=== PATIENT | male | born 1955 | race Caucasian/White ===

== ENCOUNTER 2018-07-26 05:59 | Day surgery (SDC) | payer OTHER ==
[2018-07-24 09:21] VITALS: BMI 27.9
[2018-07-26] MEDS ORDERED: ROPIVACAINE HCL 0.5% 30ML VIAL ONE (08:00)
[2018-07-26] MEDS ORDERED: MIDAZOLAM HCL 2 MG/2 ML SINGLE DOSE VIAL ONE (08:04)
[2018-07-26] MEDS ORDERED: ceFAZolin SODIUM 1 GM VIAL ONE (08:45)
[2018-07-26] MEDS ORDERED: DEXAMETHASONE SOD PHOSPHATE 4 MG/1 ML VIAL ONE (08:55)
[2018-07-26] MEDS ORDERED: ONDANSETRON 4 MG/2 ML VIAL ONE (08:55)
[2018-07-26] MEDS ORDERED: PROPOFOL 20 ML ONE ×3 (08:55→10:14)
[2018-07-26] MEDS ORDERED: BENZOIN/ALOE VERA/STORAX/TOLU 58 ML BOTTLE ONE (10:29)
[2018-07-26] MEDS ORDERED: [UNRECOGNIZED DRUG - REMARK] PO PRN (11:08)
[2018-07-26] MEDS ORDERED: FLUTICASONE/SALMETEROL 100 MCG/50 MCG DISKUS IH PRN (11:08)
--- NOTE | 2018-07-26 11:11 | OP ---
Operative Note - Note: Operative Date: 07/26/18 Pre-Operative Diagnosis: Left shoulder: 1. Impingement syndrome. 2. Rotator cuff tear Operation: Left shoulder open: 1. Rubén procedure (distal clavicle excision) . 2. Neer decompression (undercutting acromioplasty & coraco-acromial ligament release). 3. Primary rotator cuff repair (2 x S&N suture anchors) Findings: 1. Full thickness supraspinatus tear (peeled off greater tuberosity insertion) 2. Degenerative biceps tendon Implants: 2 x Tipton & Nephew suture anchors Post-Operative Diagnosis: Same as Pre-op Surgeon: Addy Vallejo Accounts Receivable Representative: Kristian Vallejo Anesthesiologist/MANAGER INTERMEDIATE: Peace Crawley Anesthesia: Local Specimens Removed: 1. Distal clavicle. 2. Undersurface acromion Estimated Blood Loss (mls): 50 Fluid Volume Replaced (mls): 1,000 (Crystalloid) Operative Report Dictated: Yes
--- NOTE | 2018-07-26 11:14 | PN ---
Progress Note (short form) - Note Progress Note: 63M s/p LEFT shoulder open Rubén procedure, Neer Decompression, & rotator cuff repair POD #0. -Pain control: Meloxicam & oxycodone PRN. -Incentive spirometry. -No chemical DVT PPx. -LUE sling. -No LEFT shoulder ROM. -Daily LEFT elbow, wrist & hand ROM. -Keep dressing clean & dry. -f/u in [facility] [place] Office on 08/02/2018; call for appointment; . Addy Vallejo MD (Orthopaedic Surgery).
[2018-07-26 12:10] VITALS: BP 133/85; PULSE 85; TEMP 98.1
--- NOTE | 2018-07-26 13:20 | OP ---
Date of Operation: 07/26/2018 Surgeon: Addy Vallejo MD Graphite Grinder: Kristian Vallejo MD Pre-Operative Diagnosis: Left shoulder: 1. Impingement syndrome. 2. Rotator cuff tear. Post-Operative Diagnosis: Left shoulder: 1. Impingement syndrome. 2. Rotator cuff tear. Surgical Procedure: Left shoulder open: 1. Rubén procedure (distal clavicle excision). 2. Neer decompression (undercutting acromioplasty and coraco-acromial ligament release). 3. Primary rotator cuff repair (2 x Tipton and Nephew suture anchors). Findings: 1. Full-thickness supraspinatus tear (peel off greater tuberosity insertion) . 2. Degenerative biceps tendon. Position: Beach chair. Incision: Longitudinal. Estimated Blood Loss: 50cc. Anesthesia: Sedation, Regional (interscalene block). Intravenous Fluid: See anaesthesia record. Specimens: Excision arthroplasty AC joint. Drains: None. Complications: None. Urine output: None. Bacteriology: None. Transfusions: None. Closure: #1 Vicryl. 3-0 Biosyn. Indications: The patient is a 63 year old male who was indicated for an open left shoulder distal claviculectomy (Rubén procedure), coraco-acromial ligament release & Acromioplasty (Neer Decompression), and primary rotator cuff repair in order to ameliorate the symptoms associated with shoulder impingement syndrome and associated rotator cuff pathology. The patient was identified in the holding area by his armband. A long discussion was held with the patient regarding the risks, benefits and alternatives of the above-named procedure. Risks include but are not limited to : pain, bleeding, infection, damage to surrounding structures (including nerves , blood vessels, skin, ligaments, tendons and bone), reflex sympathetic dystrophy (RSD), wound complications, failure of repair, need for further surgery, blood clots, myocardial infarction, pulmonary embolism, anesthesia complications, compartment syndrome, limb loss, limp, loss of function, cerebrovascular event, and . Benefits as mentioned above. Alternatives include no surgery. All questions were answered. The patient understood and agreed to the procedure. Informed consent was obtained, witnessed and verified. The patients correct operative limb - the left upper extremity - was marked, and the anesthesia team administered an ipsilateral interscalene nerve block. The patient was then taken to the operating room after being seen by the anesthesia and nursing staff. Procedure: The patient was brought into the operating room, placed supine on the OR table and secured with a safety strap. Consent and the operative site was again verified with the patient and nursing and anaesthesia staff. Anaesthesia & antibiotics were then administered without complication. A time-out was done led by , the attending surgeon. The patient was positioned in a beach chair position with all bony prominences well padded. A soft bump was placed under the inferior pole of the ipsilateral scapula. The operative limb was prepped in standard sterile fashion using betadine prep & scrub, wiped off with alcohol, and DuraPrep, and then free draped. A time-out was repeated, and the case began. An incision was made in the lines of Sia from the coracoid process to the lateral body of the acromion. The deltoid was identified. Subcutaneous dissection was carried with electrocautery down to the level of the distal clavicle. With the distal clavicle exposed, sharp Hohmann retractors were placed around the inferior aspects of the anterior and posterior surfaces of the distal clavicle to elevate it. The acromioclavicular (AC) joint was clearly identified and the AC ligament was incised using a 15-blade. The distal 1cm of the clavicle was marked for excision. An oscillating saw was used to perform a distal clavicular osteotomy. A beveled angular cut was made to avoid leaving a sharp inferior corner to impinge on the rotator cuff below. The excision arthroplasty of the distal clavicle was completed and excised from its capsular attachments using a 15-blade. The soft tissues of the joint were saved for later closure. Throughout the case, hemostasis was assured using either monopolar or bipolar electrocautery. Next, deltoid was elevated anteriorly off the underlying coraco-acromial (CA) ligament below using an [employer] retractor. The CA ligament was incised longitudinally using a fresh 15-blade. The CA ligament was then fully released proximally and distally using Metzenbaum scissors. With the CA ligament fully decompressed, the subacromial space became easily accessible. This space was extremely tight. The AC joint capsule was neatly dissected to expose the distal acromion. A blunt Hohmann retractor was placed on the undersurface of the acromion, levering the humeral head down, protecting the underlying structures. Next, the oscillating saw was used to osteotomize the undersurface of the acromion with a beveled cut. A straight 1/2" osteotome was used to complete the cut and to free the excised segment of bone. The osteotomized acromioplasty bone fragment was then removed using a rongeur with a 15-blade to release any soft tissue attachments. The wound was copiously irrigated throughout the case using normal saline solution. Next, with finger palpation, an entire finger was delivered into the sub- acromial space and bursal adhesions were released using manual finger debridement. The shoulder was then taken through a full range of motion were a full thickness tear of the supraspinatus tendon was visualized. The insertion of the tendon had peeled off its attachment to the greater tuberosity of the humerus. The biceps tendon was also visualized and found to be degenerative. It was neatly debrided. Next, 2 titanium Tipton & Nephew suture anchors were inserted into the supraspinatus footprint on the proximal humerus. Each anchor held 2 distinct sutures. The distal edge of the supraspinatus tendon was excised using a fresh 15-blade, revealing a healthy, bleeding tendon edge to facilitate healing. The 4 total sutures from the anchors were delivered through the distal end of the supraspinatus tendon using a free needle and then tied using simple- interrupted knots. This was done with the shoulder in a neutral position. At this point the wound was copiously irrigated. The AC joint capsule was closed primarily using #1 vicryl sutures. Again, copious irrigation was performed, hemostasis was assured and the wound was closed primarily using #1 and 2-0 vicryl sutures. The skin was closed using a 3-0 Biosyn subcuticular suture. A sterile, compressive dressing was applied. The sponge and needle counts were correct at the end of the case and I, the attending surgeon, was present and scrubbed throughout the case. The patient was then transferred to a hospital stretcher and to the recovery room in stable condition, having tolerated the procedure well. A sling was applied at the end of the case. MD USAMA [id number] MTDD
[2018-07-26] MEDS ORDERED: oxyCODONE HCL 5 MG TABLET PO PRN ×2 (14:11)
[2018-07-26] MEDS ORDERED: ONDANSETRON 4 MG/2 ML VIAL IVPUSH PRN (14:11)
[2018-07-26] MEDS ORDERED: LACTATED RINGERS SOLUTION 1,000 ML IV SCH (14:15)
== END 2018-07-26 12:00 | disposition home or self-care (01) ==
LOC: FASU 05:59
PROVIDERS: ATTEND Orthopaedic Surgery Adult Reconstructive Orthopaedic Surgery
PROC: 0LQ20ZZ Repair Left Shoulder Tendon, Open Approach (ICD-10-PCS; 2018-07-26)
PROC: 0PBB0ZZ Excision of Left Clavicle, Open Approach (ICD-10-PCS; principal; 2018-07-26 08:00)
PROC: 0MN20ZZ Release Left Shoulder Bursa and Ligament, Open Approach (ICD-10-PCS; 2018-07-26 08:00)
DX: M75.42 Impingement syndrome of left shoulder (principal); M75.122 Complete rotator cuff tear or rupture of left shoulder, not specified as traumatic

== ENCOUNTER 2020-04-30 07:47 | Inpatient (IN) | payer OTHER ==
--- OUTSIDE RECORDS SUMMARY | 2020-04-30 08:08 | XMS ---
:1955 Author Organization [facility] Support Name Relationship Address Phone KIRK MYLES BROTHER [address] [place] [address] RE Unavailable Unavailable Unavailable Re-disclosure Warning The records that you are about to access may contain information from federally- assisted alcohol or drug abuse programs. If such information is present, then the following federally mandated warning applies: This information has been disclosed to you from records protected by federal confidentiality rules (42 CFR part 2). The federal rules prohibit you from making any further disclosure of this information unless further disclosure is expressly permitted by the written consent of the person to whom it pertains or as otherwise permitted by 42 CFR part 2. A general authorization for the release of medical or other information is NOT sufficient for this purpose. The Federal rules restrict any use of the information to criminally investigate or prosecute any alcohol or drug abuse patient.The records that you are about to access may contain highly sensitive health information, the redisclosure of which is protected by Article 27-F of the [facility] Public Health law. If you continue you may haveaccess to information: Regarding HIV / AIDS; Provided by facilities licensed or operated by the [facility] Office of Mental Health; or Provided by the [facility] Office for People With Developmental Disabilities. If such information is present, then the following [facility] mandated warning applies: This information has been disclosed to you from confidential records which are protected by state law. State law prohibits you from making any further disclosure of this information without the specific written consent of the person to whom it pertains, or as otherwise permitted by law. Any unauthorized further disclosure in violation of state law may result in a fine or longterm sentence or both. A general authorization for the release of medical or other information is NOT sufficient authorization for further disclosure. Insurance Providers Payer name Policy type Policy ID Covered Covered democrat's Policy P marshal / Coverage democrat ID relationship to [facility] ormation type duke [facility] [id number] SP [id number] [employer] [facility] [id number] SP [id number] 462 CARE HMO/POS/EPO Results ID Date Data Source [id number] 12/17/2019 10:54:00 AM EDT [facility] Name Value Range Interpretation Code Description Data Catrachita rce(s) Supporting Document(s ) COV2 [facility] This lab was ordered by JOSE RAMON POND and reported by [facility] Oksana. Procedure
--- NOTE | 2020-04-30 08:09 | PDOC ---
History of Present Illness - General Chief Complaint: Pain Stated Complaint: RIGHT QUADRICEP TENDON PAIN Time Seen by Provider: 04/30/20 08:03 History Source: Patient Exam Limitations: No Limitations - History of Present Illness Initial Comments: 04/30/20 08:10 65y M hx of cad (sp stents), presents to the ED for evaluation of closed quadricepts tendon. Pt was evluated by Dr. Thompson in his office and sent in for repair. The patient tripped approximately 12 days ago, had some right knee pain, had negative x-rays was ultimately referred to Ortho had an MRI revealing a closed right quadriceps tendon tear, was evaluated by orthopedics and sent in for surgery today. Patient endorses some swelling in his entire right leg he denies any associated symptoms including chest pain, shortness of breath, hemoptysis, calf pain. Last oral intake was last night. ROS: Constitutional - no reported Fever, Chills, Respiratory: no reported cough, sob, hemoptysis Cardiac: no reported chest pain, palpitations, light headedness, leg swelling Abd/GI: no reported abd pain, nausea, vomiting, blood per rectum, melena, diarrhea : no reported dysuria, frequency, discharge Musculskelatal - +R leg pain/swelling no reported back pain, joint swelling skin - no reported bruising, erythema, rash neurological: no reported headache, numbness, focal weakness, tingling, ataxia, hematologic: no reported easy bruising, easy bleeding Exam: GENERAL: The patient is awake, alert, and fully oriented, Nontoxic - in no acute distress. HEAD: Normocephalic, atraumatic. EYES: extraocular movements intact, sclera anicteric, conjunctiva clear. ENT: Normal voice, Moist mucous membranes. NECK: Normal range of motion, supple LUNGS: Breath sounds equal, clear to auscultation bilaterally. No wheezes, no rhonchi, no rales. HEART: Regular rate and rhythm, normal S1 and S2 without murmur, rub or gallop. ABDOMEN: Soft, nontender, No guarding, no rebound. No CVA tenderness EXTREMITIES: Normal range of motion, mild edema of the right thigh, right knee (right lower extremity in a knee immobilizer), no calf tenderness, negative Homans sign NEUROLOGICAL: No facial assymetry, Normal speech, PSYCH: Normal mood, normal affect. SKIN: Warm, Dry, normal turgor, 65-year-old gentleman history of CAD with a recent diagnosis of quadriceps tendon tear Anticipate OR this morning COVID test and preop orders obtain Past History - Medical History Allergies/Adverse Reactions: Allergies Allergy/AdvReac Type Severity Reaction Status Date / Time amoxicillin Allergy Severe BLOTCHES Verified 04/30/20 07:51 ON SKIN Home Medications: Ambulatory Orders Aspirin 81 mg PO DAILY 04/30/20 Atorvastatin Ca [Lipitor] 80 mg PO HS 04/30/20 Clopidogrel Bisulfate [Plavix] 75 mg PO DAILY 04/30/20 Finasteride [Proscar -] 5 mg PO DAILY 04/30/20 Naproxen [Naprosyn -] 500 mg PO PRN 04/30/20 Nebivolol HCl [Bystolic] 10 mg PO DAILY 04/30/20 Anemia: No Asthma: No (USES INHALER FOR ALLERGIES REASONS) Cancer: No Cardiac Disorders: Yes ([place] 9,14,19) CVA: No COPD: No CHF: No Dementia: No Diabetes: No GI Disorders: Yes (GERD) Disorders: No HTN: No Hypercholesterolemia: No Liver Disease: No Seizures: No Thyroid Disease: No - Surgical History Abdominal Surgery: Yes (OVER 40 YEARS AGO HERNIA REPAIR) Appendectomy: No Cardiac Surgery: Yes (stents x3) Cholecystectomy: No Lung Surgery: No Neurologic Surgery: No Orthopedic Surgery: Yes - Psycho-Social/Smoking History Smoking History: Never smoked Have you smoked in the past 12 months: No - Substance Abuse Hx (Audit-C & DAST Scrn) How often the patient has a drink containing alcohol: Monthly or less Number of drinks the patient has on a typical day: 1 or 2 How often the patient has six or more drinks on one occasion: Never Score: In Men: 4 or > Positive; In Women: 3 or > Positive: 1 Screen Result (Pos requires Nsg. Audit-10AR): Negative In the last yr the pt used illegal drug/Rx for NonMed reason: No Score: Yes response is considered Positive: 0 Screen Result (Positive result requires Nsg. DAST-10): Negative *Physical Exam - Vital Signs Last Vital Signs Temp Pulse Resp BP Pulse Ox 98.4 F 69 16 122/65 97 04/30/20 07:51 04/30/20 07:51 04/30/20 07:51 04/30/20 07:51 04/30/20 07:51 Heart Score/ECG Review - ECG Impressions Comment:: 04/30/20 09:08 Twelve-lead EKG was performed and reviewed by me. There is normal sinus rhythm with a Rate of 59 The axis is normal. The intervals are normal. There are no ST or T wave abnormalities. ED Treatment Course - LABORATORY CBC & Chemistry Diagram: 04/30/20 08:15 04/30/20 08:15 - RADIOLOGY Radiology Studies Ordered: Category Date Time Status CHEST X-RAY PORTABLE* [RAD] Stat Radiology 04/30/20 08:04 Ordered Medical Decision Making - Medical Decision Making 04/30/20 10:34 Patient blood work was reviewed, case was discussed with inpatient team will admit for further management under Dr. Petty's team Discharge - Discharge Information Problems reviewed: Yes Clinical Impression/Diagnosis: Injury of quadriceps tendon Condition: Stable - Admission Yes - Follow up/Referral Referrals: ON STAFF,NOT [Primary Care Provider] - - Patient Discharge Instructions - Post Discharge Activity
[2020-04-30 08:34] LABS: BASO % 0.7 % (0-2.0); EOS % 0.7 % (0-4.5); HEMOGLOBIN 12.5 GM/dL (11.7-16.9); LYMPH % 19.3 % (8-40); MCH 30.8 pg (25.7-33.7); MCHC 33.9 g/dl (32.0-35.9); MEAN CELL VOLUME 90.7 fl (80-96); MEAN PLT VOLUME 8.1 fl (7.5-11.1); NEUT % 72.3 % (42.8-82.8); PLATELET COUNT 326 K/MM3 (134-434); RBC 4.08 M/mm3 (4.00-5.60); RDW 14.6 % (11.9-15.9); WHITE BLOOD COUNT 8.7 K/mm3 (4.0-10.0)
--- NOTE | 2020-04-30 08:43 | PN ---
Progress Note (short form) - Note Progress Note: 65M presents with subacute, traumatic right quadriceps tendon tear. -f/u rapid COVID-19 test. -NPO, IVF. -Hold DVT PPx. including Aspirin and Plavix (last dose yesterday). -On add-on OR schedule for today: open repair/reconstruction right quadriceps tendon. [facility] -RLE [place] brace locked in extension. -WBAT RLE. -Will follow. Addy Vallejo MD (Orthopaedic Surgery).
[2020-04-30 08:45] LABS: INR 0.98 (0.83-1.09); PROTHROMBIN TIME (PATIENT) 11.6 SEC (9.7-13.0)
[2020-04-30 08:56] LABS: ALBUMIN 3.7 g/dl (3.4-5.0); BILIRUBIN,TOTAL 1.7 mg/dL (0.2-1); BLOOD UREA NITROGEN 22.1 mg/dL (7-18); CALCIUM 9.3 mg/dL (8.5-10.1); CREATININE 0.8 mg/dL (0.55-1.3); POTASSIUM 4.1 mmol/L (3.5-5.1); TOT PROT 6.6 g/dl (6.4-8.2)
[2020-04-30] MEDS ORDERED: SODIUM CHLORIDE 1,000 ML IV ONE (10:26)
--- NOTE | 2020-04-30 10:29 | EKG ---
Test Reason : Blood Pressure : / mmHG Vent. Rate : 059 BPM Atrial Rate : 059 BPM P-R Int : 132 ms QRS Dur : 104 ms QT Int : 444 ms P-R-T Axes : 028 016 062 degrees QTc Int : 439 ms SINUS BRADYCARDIA WITH PREMATURE ATRIAL COMPLEXES LOW VOLTAGE QRS INCOMPLETE RIGHT BUNDLE BRANCH BLOCK CANNOT RULE OUT ANTEROSEPTAL INFARCT , AGE UNDETERMINED ABNORMAL ECG NO PREVIOUS ECGS AVAILABLE Confirmed by MEME KEY MD ([id number]) on 04/30/2020 10:29:02 AM Referred By: Confirmed By:MEME KEY MD
[2020-04-30] MEDS ORDERED: SODIUM CHLORIDE 1,000 ML IV SCH (10:45)
--- NOTE | 2020-04-30 11:30 | HP ---
CHIEF COMPLAINT: R leg pain PCP: HISTORY OF PRESENT ILLNESS: Patient is a 65 y/o male with a history of CAD sp 3 stents in March 2019 who presents for tear of R quad tendon. Patient reports last week he tripped going up stairs. At [facility] he had an xray done that did not show a tear, but then with Dr. Shepherd he had an MRI done that showed a tear. Patient reports the pain is minimal but there is a lot of bruising. He has had multiple other orthopedic joints operated on. Denies fever, chills, nausea, vomiting, headache, or shortness of breath. ER course was notable for: (1) (2) (3) Recent Travel: denies PAST MEDICAL HISTORY: CAD s/p 3 stents PAST SURGICAL HISTORY: Promise Garcia Social History: Smoking: denies Alcohol: occasional Drugs: denies Allergies amoxicillin Allergy (Severe, Verified 04/30/20 07:51) BLOTCHES ON SKIN HOME MEDICATIONS: Home Medications Medication Instructions Recorded Aspirin 81 mg PO DAILY 04/30/20 Atorvastatin Ca [Lipitor] 80 mg PO HS 04/30/20 Clopidogrel Bisulfate [Plavix] 75 mg PO DAILY 04/30/20 Finasteride [Proscar -] 5 mg PO DAILY 04/30/20 Naproxen [Naprosyn -] 500 mg PO PRN 04/30/20 Nebivolol HCl [Bystolic] 10 mg PO DAILY 04/30/20 REVIEW OF SYSTEMS CONSTITUTIONAL: Absent: fever, chills, diaphoresis, generalized weakness, malaise, loss of appetite, weight change HEENT: Absent: rhinorrhea, nasal congestion, throat pain, throat swelling, difficulty swallowing, mouth swelling, ear pain, eye pain, visual changes CARDIOVASCULAR: Absent: chest pain, syncope, palpitations, irregular heart rate, lightheadedness, peripheral edema RESPIRATORY: Absent: cough, shortness of breath, dyspnea with exertion, orthopnea, wheezing, stridor, hemoptysis GASTROINTESTINAL: Absent: abdominal pain, abdominal distension, nausea, vomiting, diarrhea, constipation, melena, hematochezia GENITOURINARY: Absent: dysuria, frequency, urgency, hesitancy, hematuria, flank pain, genital pain MUSCULOSKELETAL: myalgia Absent:, arthralgia, joint swelling, back pain, neck pain SKIN: Absent: rash, itching, pallor HEMATOLOGIC/IMMUNOLOGIC: Absent: easy bleeding, easy bruising, lymphadenopathy, frequent infections ENDOCRINE: Absent: unexplained weight gain, unexplained weight loss, heat intolerance, cold intolerance NEUROLOGIC: Absent: headache, focal weakness or paresthesias, dizziness, unsteady gait, seizure, mental status changes, bladder or bowel incontinence PSYCHIATRIC: Absent: anxiety, depression, suicidal or homicidal ideation, hallucinations. PHYSICAL EXAMINATION Vital Signs Temperature 98.2 F 04/30/20 10:23 Pulse Rate 65 04/30/20 10:23 Respiratory Rate 18 04/30/20 10:23 Blood Pressure 121/76 04/30/20 10:23 O2 Sat by Pulse Oximetry (%) 97 04/30/20 10:23 GENERAL: Awake, alert, and fully oriented, in no acute distress. HEAD: Normal with no signs of trauma. EYES: Pupils equal, round and reactive to light, extraocular movements intact, sclera anicteric, EARS, NOSE, THROAT: Moist mucous membranes. LUNGS: Breath sounds equal, clear to auscultation bilaterally. No wheezes, and no crackles. No accessory muscle use. HEART: Regular rate and rhythm, normal S1 and S2 without murmur, rub or gallop. ABDOMEN: Soft, nontender, not distended, normoactive bowel sounds, no guarding, no rebound, no masses. No hepatomegaly or splenomegaly. MUSCULOSKELETAL: Rl eg in a brace over pants, per patient skin is bruised LOWER EXTREMITIES: 2+ pulses, warm, well-perfused. No calf tenderness. No peripheral edema. SKIN: Warm, dry, normal turgor, no rashes or lesions noted, normal capillary refill. CBC, BMP 04/30/20 08:15 04/30/20 08:15 ASSESSMENT/PLAN: Patient is a 65 y/o male with a history of CAD sp 3 stents in March 2019 who presents for tear of R quad tendon. #R quadriceps tear - for surgery today with Dr. Shepherd - patient is a moderate risk for a moderate procedure - EKG sowed sinus bradycardia at 59 - f/u anesthesia for pain control post op #hx CAD with 3 stents - hold ASA and clopidogrel pre op - continue home bp meds tomorrow if patient's vitals can tolerate DVT ppx: SCD left leg FEN: NPO, NS Dispo: monitor on med surg after surgery Family Medical History Family History: As Documented Visit type - Emergency Visit Emergency Visit: Yes ED Registration Date: 04/30/20 Care time: The patient presented to the Emergency Department on the above date and was hospitalized for further evaluation of their emergent condition. - New Patient This patient is new to me today: Yes Date on this admission: 04/30/20 - Critical Care Critical Care patient: No ATTENDING PHYSICIAN STATEMENT I saw and evaluated the patient. I reviewed the resident's note and discussed the case with the resident. I agree with the resident's findings and plan as documented. SUBJECTIVE: OBJECTIVE: ASSESSMENT AND PLAN:
--- NOTE | 2020-04-30 12:43 | PN ---
Teaching Attending Note Name of Resident: Franca Olsen ATTENDING PHYSICIAN STATEMENT I saw and evaluated the patient. I reviewed the resident's note and discussed the case with the resident. I agree with the resident's findings and plan as documented. SUBJECTIVE: 65yo M with h/o CAD x3 stents with most recent 03/[address] [facility] for ruptured R quadriceps tendon. He had a mechanical fall about 10 days prior and sought attention due to some residual R leg weakness and pain. He had undergone XR to r/o fracture and followed up outpatient with [facility]. He underwent MRI for his RLE which revealed a quadriceps tendon tear and he was sent here for urgent/emergent surgical repair. Patient has his imaging performed at [facility] affiliated location. Patient reports that he has full sensation and was able to walk with a cane albeit under same pain. He denies any prodromal symptoms to the fall and notes just tripping on an item on the floor. Patient has undergone surgical repair of L rotator cuff tendon with impingement reduction without any difficulties. He is taking Aspirin and Plavix due to his stent about 1 year prior and is due for follow-up for potential discontinuation of his Plavix. His weighter is aware of current events. OBJECTIVE: Vital Signs Temperature 98.2 F 04/30/20 10:23 Pulse Rate 65 04/30/20 10:23 Respiratory Rate 18 04/30/20 10:23 Blood Pressure 121/76 04/30/20 10:23 O2 Sat by Pulse Oximetry (%) 97 04/30/20 10:23 PE: gen: NAD, awake, alert, oriented HEENT: NC/AT, EOMI, [place], MMM Neck: No JVD CARD: RRR no murmurs LUNG: CTA b/l without splinting, wheezes or rales ABD: Soft, Nt/ND, + BS EXT: RLE in traction brace, movement intact at the ankle, sensation intact at the ankle, b/l pulses strong CBC, BMP 04/30/20 08:15 04/30/20 08:15 Active Medications Sodium Chloride (Normal Saline -) 1,000 mls @ 100 mls/hr IV ASDIR SONALI Stop: 04/30/20 20:44 Last Admin: 04/30/20 10:49 Dose: 100 mls/hr Documented by: ECG - Sinus bradycardia @59bpm, with PACs, incomplete RBB, no prior ECGs for comparison ASSESSMENT AND PLAN: Acute R Quadriceps Tendon Rupture History of CAD s/p PCI stenting --Given emergent/urgent nature of surgical intervention patient will need to undergo repair --Can hold ASA and Plavix in lieu of procedure; surgical team aware of recent discontinuation --Restart per surgical team --Awaiting COVID PCR for surgery --CBC/CMP WNL --CXR reviewed without any acute pathology --Patient to have pain control if needed --Upon d/c patient should avoid fluoroquinolone therapy in future if possible due increased risk of tendon ruptures --NPO for now; unknown is patient will undergo general anesthesia limb block Dispo: awaiting surgery (added-on to schedule) Rest as per resident note DO Rekha Schreiber
[2020-04-30 15:14] VITALS: BMI 28.5
[2020-04-30] MEDS ORDERED: EPHEDRINE SULFATE/0.9% NACL/PF 50 MG/10 ML SYRINGE NR ONE (15:15)
[2020-04-30] MEDS ORDERED: SUCCINYLCHOLINE CHLORIDE 200 MG/10 ML SYRINGE ONE (15:15)
[2020-04-30] MEDS ORDERED: PROPOFOL 20 ML ONE ×2 (15:15)
[2020-04-30] MEDS ORDERED: ROCURONIUM BROMIDE 50 MG/5 ML SYRINGE ONE ×2 (15:16→15:55)
[2020-04-30] MEDS ORDERED: MIDAZOLAM HCL 2 MG/2 ML SINGLE DOSE VIAL ONE (15:19)
[2020-04-30] MEDS ORDERED: MINERAL OIL/PETROLATUM,WHITE 3.5 GM TUBE ONE (15:19)
[2020-04-30] MEDS ORDERED: ceFAZolin SODIUM 1 GM VIAL IVPB ONE ×3 (15:46→15:50)
[2020-04-30] MEDS ORDERED: HYDROmorphone HCl 2 MG/ML VIAL ONE ×2 (16:33→17:19)
[2020-04-30] MEDS ORDERED: NEOSTIGMINE METHYLSULFATE 0.5 MG/1 ML - 10 ML MDV ONE (16:34)
[2020-04-30] MEDS ORDERED: MAGNESIUM HYDROX 2400MG/30ML ORAL SUSPENSION 30 ML CUP PO PRN (17:10)
[2020-04-30] MEDS ORDERED: ONDANSETRON 4 MG/2 ML VIAL IVPUSH PRN ×2 (17:10→18:11)
[2020-04-30] MEDS ORDERED: MAG HYDROX/AL HYDROX/SIMETH 30 ML UNIT-DOSE CUP PO PRN (17:10)
[2020-04-30] MEDS ORDERED: LACTATED RINGERS SOLUTION 1,000 ML IV SCH ×2 (17:15→18:15)
--- NOTE | 2020-04-30 17:27 | PN ---
Progress Note (short form) - Note Progress Note: 65M presents with subacute, traumatic right quadriceps tendon tear. Pain well controlled. No acute events. Pt. admitted through ED to expedite COVID-19 rapid testing to facilitate expedited surgical care. Pt. NPO, on IVF. Labs & vitals reviewed. PE: AAO x 3, NAD. R Knee: Knee immobilizer intact & in place. (+) Sulcus sign over distal quadriceps tendon. Unable to SLR. NVI distally. Imaging: No new imaging obtained. Outpatient MRI R knee demonstrates full thickness quadriceps tear. A/P: 65M presents with subacute, traumatic right quadriceps tendon tear. -Long conversation held with patient regarding natural history and progression of quadriceps tendon tears. -Risks, benefits, and alternatives of non-surgical VS surgical intervention discussed with and understood by patient. He wishes to pursue a surgical solution to his right quadriceps tendon tear. -NPO, IVF. -Consent in chart for open repair right quadriceps tendon tear. -Pain control. 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 -Care per primary [facility] medical hospitalist team. -Will follow. Addy Vallejo MD (Orthopaedic Surgery).
--- NOTE | 2020-04-30 17:32 | PN ---
Progress Note (short form) - Note Progress Note: 65M s/p open repair quadriceps tendon POD #0. -Pain control: per anaesthesia team. -DVT PPx: -Chemical: ASA 81mg PO BID x 6 weeks. -Mechanical: MARVIN's, SCD's. -f/u 2 x drain outputs. -Incentive spirometry q15 min. -PT/OT/Rehab, OOB. -WBAT RLE. -Knee immobilizer on at all times; strictly NO range of motion right knee. -Post-op Ancef x 3 doses. -f/u post-op TOV: 8 hours max. -f/u AM labs. -Diet as tolerated. -Care per medical hospitalist team. -Discharge planning: f/u [facility] [place] [facility] 7-10 days after discharge; call for appointment . -Will follow. Addy Vallejo MD (Orthopaedic Surgery).
[2020-04-30] MEDS ORDERED: HYDROmorphone *PCA* 10MG/50ML DISP.SYRIN ONE (17:48)
--- NOTE | 2020-04-30 17:53 | OP ---
Operative Note - Note: Operative Date: 04/30/20 Pre-Operative Diagnosis: Traumatic right quadriceps tendon tear Operation: Open right quadriceps tendon repair Post-Operative Diagnosis: Same as Pre-op Surgeon: Addy Vallejo Sap Technical Developer: Kristian Vallejo Anesthesiologist/INFORMATICS NURSE SPECIALIST: Eze Starkey Anesthesia: General Estimated Blood Loss (mls): 20 Drains & Tubes with Location: 1 x deep & 1 x superficial drain Fluid Volume Replaced (mls): 500 (Crystalloid) Operative Report Dictated: Yes
[2020-04-30] MEDS: HYDROmorphone *PCA* 10MG/50ML DISP.SYRIN PCA SCH (18:00)
[2020-04-30] MEDS ORDERED: HYDROmorphone HCl 2 MG/ML VIAL IVPB ONE (18:11)
[2020-04-30] MEDS ORDERED: FLU VACCINE (FLULAVAL) PF 60 MCG/0.5 ML SYRINGE 2020-2021 IM ONE (20:00)
[2020-04-30] MEDS ORDERED: SENNOSIDES/DOCUSATE COMBO (SENNA PLUS) TABLET (UD) PO SCH (22:00)
[2020-04-30] MEDS ORDERED: ASPIRIN 81 MG CHEWABLE TABLETS PO SCH (22:00)
[2020-04-30] MEDS ORDERED: ATORVASTATIN CA 80 MG TABLET (FP) PO SCH (22:00)
[2020-04-30] MEDS: CEFAZOLIN 2 GM/D5W 2 GM/50 ML ML IVPB SCH (23:19)
[2020-05-01] MEDS: CEFAZOLIN 2 GM/D5W 2 GM/50 ML ML IVPB SCH (05:23)
[2020-05-01] MEDS ORDERED: MAGNESIUM HYDROX 2400MG/30ML ORAL SUSPENSION 30 ML CUP PO PRN (07:38)
[2020-05-01] MEDS ORDERED: ONDANSETRON 4 MG/2 ML VIAL IVPUSH PRN (07:38)
[2020-05-01 08:07] LABS: BASO % 0.3 % (0-2.0); HEMATOCRIT 32.9 % (35.4-49); HEMOGLOBIN 10.8 GM/dL (11.7-16.9); LYMPH % 5.2 % (8-40); MCH 29.7 pg (25.7-33.7); MCHC 32.8 g/dl (32.0-35.9); MEAN CELL VOLUME 90.6 fl (80-96); MEAN PLT VOLUME 8.6 fl (7.5-11.1); MONO % 7.4 % (3.8-10.2); NEUT % 87.1 % (42.8-82.8); PLATELET COUNT 303 K/MM3 (134-434); RBC 3.63 M/mm3 (4.00-5.60); RDW 14.8 % (11.9-15.9); WHITE BLOOD COUNT 13.3 K/mm3 (4.0-10.0)
[2020-05-01 08:34] LABS: ALBUMIN 3.1 g/dl (3.4-5.0); BLOOD UREA NITROGEN 17.2 mg/dL (7-18); CALCIUM 8.8 mg/dL (8.5-10.1); CREATININE 0.9 mg/dL (0.55-1.3); MAGNESIUM 1.8 mg/dL (1.8-2.4); PHOSPHOROUS 3.7 mg/dL (2.5-4.9); POTASSIUM 4.4 mmol/L (3.5-5.1); TOT PROT 5.7 g/dl (6.4-8.2)
[2020-05-01] MEDS ORDERED: NEBIVOLOL 10 MG TABLET (FP) PO SCH (10:00)
[2020-05-01] MEDS ORDERED: PANTOPRAZOLE 40 MG TABLET PO SCH (10:00)
[2020-05-01] MEDS ORDERED: FINASTERIDE 5 MG TABLET (FP) PO SCH (10:00)
[2020-05-01] MEDS: NEBIVOLOL 10 MG TABLET (FP) PO SCH (10:46)
[2020-05-01] MEDS: PANTOPRAZOLE 40 MG TABLET PO SCH (10:46)
[2020-05-01] MEDS: ASPIRIN COATED 81 MG TABLET.EC PO SCH ×2 (10:46→21:53)
[2020-05-01] MEDS: FINASTERIDE 5 MG TABLET (FP) PO SCH (10:46)
[2020-05-01] MEDS: SENNOSIDES/DOCUSATE COMBO (SENNA PLUS) TABLET (UD) PO SCH ×2 (10:47→21:55)
[2020-05-01] MEDS ORDERED: CEFAZOLIN 2 GM/D5W 2 GM/50 ML ML IVPB SCH (11:00)
--- NOTE | 2020-05-01 14:29 | PN ---
Teaching Attending Note Name of Resident: Rafiq Gar ATTENDING PHYSICIAN STATEMENT I saw and evaluated the patient. I reviewed the resident's note and discussed the case with the resident. I agree with the resident's findings and plan as documented. SUBJECTIVE: No fever or chills. has pain in area surrounding knee. no ZAPIEN , no N.V. OBJECTIVE: NAD, awake, alert, cooperative CV: RRR, no mRG Lungs: CTAB LE: RLE in a immobilizer with 2 drains with serosanguinous fluids. R toes with n l sensation , can wiggle and DP 2+ . 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 will confirm with dr. Vallejo - cont ASA - cont bystolic - cont statin - dc IVF - APRIL management per ortho dispo; HLOC
--- NOTE | 2020-05-01 17:30 | PN ---
Physical Exam: SUBJECTIVE: Patient seen and examined at bedside, reports discomfort with his knee immobilizer. able to make urine. No bowel movements/gas. Pain controlled, able to tolerate Diet. OBJECTIVE: Vital Signs Period Temp Pulse Resp BP Sys/Ch Pulse Ox Last 24 Hr 97.9 F-98.5 F 58-88 12-18 124-142/59-90 97-100 GENERAL: Awake, alert, and fully oriented, in no acute distress. HEAD: Normal with no signs of trauma. EYES: Pupils equal, round and reactive to light, extraocular movements intact, sclera anicteric, EARS, NOSE, THROAT: Moist mucous membranes. LUNGS: Breath sounds equal, clear to auscultation bilaterally. No wheezes, and no crackles. No accessory muscle use. HEART: Regular rate and rhythm, normal S1 and S2 without murmur, rub or gallop. ABDOMEN: Soft, nontender, not distended, normoactive bowel sounds, no guarding, no rebound, no masses. No hepatomegaly or splenomegaly. LOWER EXTREMITIES: 2+ pulses, warm, well-perfused. No calf tenderness. No peripheral edema. Right leg: Knee immobilizer in place, intact dressing, 2 APRIL drains with serosanguinous fluids: motor and sensory function intact in RLE. SKIN: Warm, dry, normal turgor, no rashes or lesions noted, normal capillary refill. Laboratory Results - last 24 hr 05/01/20 05/01/20 06:50 06:50 WBC 13.3 H RBC 3.63 L Hgb 10.8 L Hct 32.9 L MCV 90.6 MCH 29.7 MCHC 32.8 RDW 14.8 Plt Count 303 MPV 8.6 Absolute Neuts (auto) 11.6 H Neutrophils % 87.1 H D Lymphocytes % 5.2 L D Monocytes % 7.4 Eosinophils % 0.0 D Basophils % 0.3 Nucleated RBC % 0 Sodium 137 Potassium 4.4 Chloride 103 Carbon Dioxide 28 Anion Gap 6 L BUN 17.2 Creatinine 0.9 Est GFR (CKD-EPI)AfAm 104.98 Est GFR (CKD-EPI)NonAf 90.58 Random Glucose 134 H Calcium 8.8 Phosphorus 3.7 Magnesium 1.8 Total Bilirubin 1.0 AST 19 ALT 19 Alkaline Phosphatase 57 Total Protein 5.7 L Albumin 3.1 L Active Medications Generic Name Dose Route Start Last Admin Trade Name Freq PRN Reason Stop Dose Admin Al Hydroxide/Mg Hydroxide 30 ml 05/01/20 07:38 Mylanta Oral Suspension - PO Q4H PRN DYSPEPSIA Aspirin 81 mg 05/01/20 10:00 05/01/20 10:46 Ecotrin - PO 81 mg BID SONALI Administration Atorvastatin Calcium 80 mg 05/01/20 22:00 Lipitor - PO HS SONALI Finasteride 5 mg 05/01/20 10:00 05/01/20 10:46 Proscar - PO 5 mg DAILY SONALI Administration Hydromorphone HCl 10 mg 04/30/20 18:15 04/30/20 18:00 Hydromorphone 10 Mg/50 Ml-Ns FLIGHT COMMUNICATIONS OPERATOR 05/07/20 18:12 10 mg FLIGHT COMMUNICATIONS OPERATOR SONALI Administration Protocol Magnesium Hydroxide 30 ml 05/01/20 07:38 Milk Of Magnesia - PO PRN PRN CONSTIPATION Nebivolol 10 mg 05/01/20 10:00 05/01/20 10:46 Bystolic - PO 10 mg DAILY SONALI Administration Ondansetron HCl 4 mg 04/30/20 18:11 Zofran Injection IVPUSH Q6H PRN NAUSEA AND/OR VOMITING Ondansetron HCl 4 mg 05/01/20 07:38 Zofran Injection IVPUSH Q6H PRN NAUSEA Pantoprazole Sodium 40 mg 05/01/20 10:00 05/01/20 10:46 Protonix - PO 40 mg DAILY SONALI Administration Senna/Docusate Sodium 2 tablet 05/01/20 10:00 05/01/20 10:47 Pericolace - PO 2 tablet BID SONALI Administration ASSESSMENT/PLAN: 65 Y M with a PMH of CAD s/p 3 stents( most recent 03/2019) presented with a tear of R quad tendon, admitted for a repair with Dr. [facility]lejo. #R quadriceps tear - s/p Open right quadriceps tendon repair with Dr. 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 - New Patient This patient is new to me today: No - Critical Care Critical Care patient: No - Discharge Referral Referred to [facility] Med P.C.: No ATTENDING PHYSICIAN STATEMENT I saw and evaluated the patient. I reviewed the resident's note and discussed the case with the resident. I agree with the resident's findings and plan as documented. SUBJECTIVE: OBJECTIVE: ASSESSMENT AND PLAN:
[2020-05-01] MEDS: MAG HYDROX/AL HYDROX/SIMETH 30 ML UNIT-DOSE CUP PO PRN ×2 (18:39→23:38)
[2020-05-01] MEDS: ATORVASTATIN CA 80 MG TABLET (FP) PO SCH (21:53)
[2020-05-01] MEDS ORDERED: PCA PUMP NR ONE (22:07)
[2020-05-01] MEDS: HYDROmorphone *PCA* 10MG/50ML DISP.SYRIN PCA SCH (22:10)
[2020-05-02 08:21] LABS: BASO % 0.5 % (0-2.0); HEMATOCRIT 29.9 % (35.4-49); HEMOGLOBIN 10.2 GM/dL (11.7-16.9); LYMPH % 10.4 % (8-40); MCH 30.6 pg (25.7-33.7); MEAN CELL VOLUME 89.9 fl (80-96); MEAN PLT VOLUME 8.5 fl (7.5-11.1); MONO % 11.7 % (3.8-10.2); NEUT % 75.4 % (42.8-82.8); PLATELET COUNT 274 K/MM3 (134-434); RBC 3.33 M/mm3 (4.00-5.60); RDW 14.8 % (11.9-15.9); WHITE BLOOD COUNT 11.4 K/mm3 (4.0-10.0)
--- NOTE | 2020-05-02 08:31 | OP ---
Date of Operation: 04/30/2020 Pre-Operative Diagnosis: Traumatic right quadriceps rupture. Post-Operative Diagnosis: Traumatic right quadriceps rupture. Procedure Performed: 1. Open repair right quadriceps tendon rupture. (58021) 2. Application right long leg splint. (86918) Surgeon: Addy Vallejo M.D. Train Brake Operator: Kristian Vallejo M.D. Anesthesia: General. Position: Supine Incision: Midline Estimated Blood Loss: 20 mL; 1.5L evacuated hematoma. Intravenous Fluid: 500cc crystalloid. Specimens:1 x deep wound culture swab. Drains: 1 x deep & 1 x superficial 19F HemoVac. Complications: None. Urine Output: None. Transfusions: None. Closure: No. 1 and skin nba. Tourniquet Pressure: 350 mmHg. Tourniquet Time: 50 minutes. INDICATIONS: The patient was indicated for a right open quadriceps mechanism repair in order to facilitate improved motion and mobilization, and to prevent the complications associated with a sedentary lifestyle. The patient was identified in the holding area by his armband. A long discussion was held with the patient regarding the risks, benefits and alternatives of the above-named procedure. Risks include but are not limited to: pain, bleeding, infection, damage to surrounding structures (including nerves, blood vessels, skin, ligaments, tendons and bone), wound complications, failure of hardware/implants/reduction, need for further surgery, blood clots, myocardial infarction, pulmonary embolism, cerebrovascular insult, anesthesia complications, compartment syndrome, limb loss, limp, loss of function, and . Benefits as mentioned above. Alternatives include no surgery. All questions were answered. The patient understood and agreed to the procedure. Informed consent was obtained, witnessed and verified by hospital nursing staff. The patients correct operative limb - that is the right lower extremity - was marked. The patient was then seen by the anesthesia and nursing staff and then taken to the operating room. PROCEDURE: The patient was brought into the operating room, transferred to the OR table, and secured with a safety strap. Consent and the operative site were again verified with the patient, the nursing team, the surgical team, and the anesthesiology team. Anesthesia, and IV antibiotics were then administered without complication. A time out was done, led by me the attending surgeon. A preoperative orthopedic examination revealed a positive Sulcus Sign involving the operative knee. The patient was positioned with all bony prominences well padded, and a tourniquet was placed proximally on the thigh of the operative limb and set to 350mmHg. The operative limb was prepped in standard sterile fashion using betadine prep & scrub, wiped off with alcohol, DuraPrep applied, and then free draped. A time-out was again done. The limb was then exsanguinated using elevation and an Esmarch. The tourniquet was inflated, and the case began. A standard midline longitudinal incision was made over the operative knee from the distal thigh to the inferior pole of the knutson manasa. Sharp dissection was carried down to the level of the quadriceps mechanism where the full extent of the injury was visualized. The quadriceps tendon was lacerated and macerated. Medially, a transverse, full thickness, intrasubstance laceration of the quadriceps tendon was identified slightly distal to the musculotendinous junction. The extended to the lateral retinacular tissue, however a longitudinal band of retinacular tissue anchored the two ends of the torn extensor mechanism. Far medially and laterally, the retinacular tissue was intact. 1.5L retained hematoma was evacuated with manual debridement and normal saline pulse lavage irrigation. With the knee fully extended, a primary repair of the quadriceps tendon rupture was performed using #1 Vicryl sutures in simple interrupted fashion. The deep wound was closed over a deep 19F drain. A second 19F HemoVac drain was placed to drain the superficial, subcutaneous space. The wounds were closed primarily using No. 1 Vicryl sutures, and the skin was eventually closed using skin nba to facilitate potential drainage. Next, the skin surface was cleaned using saline-soaked lap pads and then dried using dry lap pads. Xeroform and dry gauze were applied to the wound. Webril as well as Salvador wraps were rolled from the foot all the way up to the thigh to provide gentle compression. Another 1g of Ancef was administered intravenously. The tourniquet was then released at a final time of 50 minutes. A Mady brace locked in extension was applied to the operative limb to splint the limb from thigh to ankle. The sponge and needle counts were correct at the end of the case, and I, the attending surgeon, was present and scrubbed throughout the case. The patient was then transferred to the hospital bed and then to the recovery room in stable condition having tolerated this procedure well. MD USAMA Sam/[id number] MTDD
[2020-05-02 08:40] LABS: BILIRUBIN,TOTAL 1.3 mg/dL (0.2-1); BLOOD UREA NITROGEN 13.5 mg/dL (7-18); CALCIUM 8.2 mg/dL (8.5-10.1); CREATININE 0.8 mg/dL (0.55-1.3); MAGNESIUM 2.1 mg/dL (1.8-2.4); PHOSPHOROUS 2.3 mg/dL (2.5-4.9); POTASSIUM 4.3 mmol/L (3.5-5.1); TOT PROT 5.6 g/dl (6.4-8.2)
[2020-05-02] MEDS: SENNOSIDES/DOCUSATE COMBO (SENNA PLUS) TABLET (UD) PO SCH ×2 (09:22→21:22)
[2020-05-02] MEDS: PANTOPRAZOLE 40 MG TABLET PO SCH (09:22)
[2020-05-02] MEDS: ASPIRIN COATED 81 MG TABLET.EC PO SCH ×2 (09:22→21:23)
[2020-05-02] MEDS: FINASTERIDE 5 MG TABLET (FP) PO SCH (09:22)
[2020-05-02] MEDS: NEBIVOLOL 10 MG TABLET (FP) PO SCH (09:22)
--- NOTE | 2020-05-02 13:47 | PN ---
Progress Note (short form) - Note Progress Note: POD #2 Post Quads Tendon Repair Apyrexial Comfortable in brece Fully orientated TPP Vitals all stable CVS Stable RESP Clear ABD Soft passing flatus Eating normal diet MSKELETAL Brace in situ Heels ok No NVD Bandage dry Drains in situ Not PLAN Continue as is ? D?C drains tomorrow PT Mobilize FWBAT in brace in full locked extension 3 months D/C panning
--- NOTE | 2020-05-02 14:56 | PN ---
Progress Note (short form) - Note Progress Note: Subjective: No fever or chills. no ZAPIEN , no abd pain. constipated . pain in RLE responds topain meds. Objective: Vital Signs: Last Vital Signs Temp Pulse Resp BP Pulse Ox 98.2 F 72 18 122/66 96 05/02/20 13:00 05/02/20 13:00 05/02/20 13:00 05/02/20 13:00 05/02/20 13:00 Laboratory Results - last 24 hr 05/02/20 05/02/20 06:57 06:57 WBC 11.4 H RBC 3.33 L Hgb 10.2 L Hct 29.9 L MCV 89.9 MCH 30.6 MCHC 34.0 RDW 14.8 Plt Count 274 MPV 8.5 Absolute Neuts (auto) 8.6 H Neutrophils % 75.4 Lymphocytes % 10.4 D Monocytes % 11.7 H Eosinophils % 2.0 D Basophils % 0.5 Nucleated RBC % 0 Sodium 138 Potassium 4.3 Chloride 104 Carbon Dioxide 29 Anion Gap 5 L BUN 13.5 Creatinine 0.8 Est GFR (CKD-EPI)AfAm 110.19 Est GFR (CKD-EPI)NonAf 95.07 Random Glucose 125 H Calcium 8.2 L Phosphorus 2.3 L Magnesium 2.1 Total Bilirubin 1.3 H AST 26 ALT 15 Alkaline Phosphatase 56 Total Protein 5.6 L Albumin 3.0 L OBJECTIVE: NAD, awake, alert, cooperative CV: RRR, no mRG Lungs: CTAB Abd: sfot, NT, ND , NL BS LE: RLE in a immobilizer with 2 drains with serosanguinous fluids. R toes with nl sensation , can wiggle and DP 2+ . 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 Vallejo, who discussed with David's inspector and hand packager about no need for plavix . - cont bystolic - cont statin - APRIL management per ortho Dispo; HLOC. Visit type - Emergency Visit Emergency Visit: Yes ED Registration Date: 04/30/20 Care time: The patient presented to the Emergency Department on the above date and was hospitalized for further evaluation of their emergent condition. - New Patient This patient is new to me today: No - Critical Care Critical Care patient: No
[2020-05-02] MEDS ORDERED: NAPH,MB-DB/K PH,MBDB POWDER PACKET PO ONE (15:00)
[2020-05-02] MEDS ORDERED: DOCUSATE SODIUM 100 MG CAPSULE (FP) PO ONE (15:00)
[2020-05-02] MEDS ORDERED: PCA PUMP NR ONE (15:17)
[2020-05-02] MEDS: MORPHINE SULFATE 2 MG/ML VIAL IVPUSH PRN ×2 (16:47→19:55)
[2020-05-02] MEDS: ATORVASTATIN CA 80 MG TABLET (FP) PO SCH (21:22)
[2020-05-03] MEDS: MORPHINE SULFATE 2 MG/ML VIAL IVPUSH PRN ×3 (02:04→09:04)
[2020-05-03 07:38] LABS: MAGNESIUM 2.1 mg/dL (1.8-2.4)
[2020-05-03 07:46] LABS: BASO % 0.6 % (0-2.0); EOS % 4.2 % (0-4.5); HEMATOCRIT 31.4 % (35.4-49); HEMOGLOBIN 10.5 GM/dL (11.7-16.9); LYMPH % 15.9 % (8-40); MCH 30.3 pg (25.7-33.7); MCHC 33.4 g/dl (32.0-35.9); MEAN CELL VOLUME 90.5 fl (80-96); MEAN PLT VOLUME 8.7 fl (7.5-11.1); MONO % 11.7 % (3.8-10.2); NEUT % 67.6 % (42.8-82.8); PLATELET COUNT 277 K/MM3 (134-434); RBC 3.47 M/mm3 (4.00-5.60); RDW 14.9 % (11.9-15.9); WHITE BLOOD COUNT 12.8 K/mm3 (4.0-10.0)
[2020-05-03] MEDS: ASPIRIN COATED 81 MG TABLET.EC PO SCH ×2 (09:03→21:34)
[2020-05-03] MEDS: SENNOSIDES/DOCUSATE COMBO (SENNA PLUS) TABLET (UD) PO SCH ×2 (09:03→21:35)
[2020-05-03] MEDS: DOCUSATE SODIUM 100 MG CAPSULE (FP) PO SCH (09:03)
[2020-05-03] MEDS: PANTOPRAZOLE 40 MG TABLET PO SCH (09:03)
[2020-05-03] MEDS: NEBIVOLOL 10 MG TABLET (FP) PO SCH (09:03)
[2020-05-03] MEDS: FINASTERIDE 5 MG TABLET (FP) PO SCH (09:04)
[2020-05-03] MEDS: oxyCODONE HCL 5 MG TABLET PO PRN ×3 (12:00→20:15)
--- NOTE | 2020-05-03 14:49 | PN ---
Physical Exam: SUBJECTIVE: Patient seen and examined at bedside, reports he feels well, no new complaints, No bowel movement yes, able to pass gas and urine. OBJECTIVE: Vital Signs Period Temp Pulse Resp BP Sys/Ch Pulse Ox Last 24 Hr 97.8 F-99.3 F 63-76 16-18 98-121/56-68 95-98 GENERAL: Awake, alert, and fully oriented, in no acute distress. HEAD: Normal with no signs of trauma. EYES: Pupils equal, round and reactive to light, extraocular movements intact, sclera anicteric, EARS, NOSE, THROAT: Moist mucous membranes. LUNGS: Breath sounds equal, clear to auscultation bilaterally. No wheezes, and no crackles. No accessory muscle use. HEART: Regular rate and rhythm, normal S1 and S2 without murmur, rub or gallop. ABDOMEN: Soft, nontender, not distended, normoactive bowel sounds, no guarding, no rebound, no masses. No hepatomegaly or splenomegaly. LOWER EXTREMITIES: 2+ pulses, warm, well-perfused. No calf tenderness. No peripheral edema. Right leg: Knee immobilizer in place, intact dressing, 2 APRIL drains with serosanguinous fluids: motor and sensory function intact in RLE. SKIN: Warm, dry, normal turgor, no rashes or lesions noted, normal capillary refill. Laboratory Results - last 24 hr 05/03/20 05/03/20 06:30 06:30 WBC 12.8 H RBC 3.47 L Hgb 10.5 L Hct 31.4 L MCV 90.5 MCH 30.3 MCHC 33.4 RDW 14.9 Plt Count 277 MPV 8.7 Absolute Neuts (auto) 8.6 H Neutrophils % 67.6 Lymphocytes % 15.9 D Monocytes % 11.7 H Eosinophils % 4.2 D Basophils % 0.6 Nucleated RBC % 0 Phosphorus 3.0 Magnesium 2.1 Active Medications Generic Name Dose Route Start Last Admin Trade Name Freq PRN Reason Stop Dose Admin Al Hydroxide/Mg Hydroxide 30 ml 05/01/20 07:38 05/01/20 23:38 Mylanta Oral Suspension - PO 30 ml Q4H PRN Administration DYSPEPSIA Aspirin 81 mg 05/01/20 10:00 05/03/20 09:03 Ecotrin - PO 81 mg BID SONALI Administration Atorvastatin Calcium 80 mg 05/01/20 22:00 05/02/20 21:22 Lipitor - PO 80 mg HS SONALI Administration Docusate Sodium 100 mg 05/03/20 10:00 05/03/20 09:03 Colace - PO 100 mg DAILY SONALI Administration Finasteride 5 mg 05/01/20 10:00 05/03/20 09:04 Proscar - PO 5 mg DAILY SONALI Administration Magnesium Hydroxide 30 ml 05/01/20 07:38 Milk Of Magnesia - PO PRN PRN CONSTIPATION Morphine Sulfate 2 mg 05/02/20 14:46 05/03/20 09:04 Morphine Sulfate IVPUSH 2 mg Q3H PRN Administration PAIN LEVEL 7 - 10 Nebivolol 10 mg 05/01/20 10:00 05/03/20 09:03 Bystolic - PO 10 mg DAILY SONALI Administration Ondansetron HCl 4 mg 04/30/20 18:11 Zofran Injection IVPUSH Q6H PRN NAUSEA AND/OR VOMITING Ondansetron HCl 4 mg 05/01/20 07:38 Zofran Injection IVPUSH Q6H PRN NAUSEA Oxycodone HCl 5 mg 05/02/20 14:47 Roxicodone - PO Q4H PRN PAIN LEVEL 4 - 6 Pantoprazole Sodium 40 mg 05/01/20 10:00 05/03/20 09:03 Protonix - PO 40 mg DAILY SONALI Administration Senna/Docusate Sodium 2 tablet 05/01/20 10:00 05/03/20 09:03 Pericolace - PO 2 tablet BID SONALI Administration ASSESSMENT/PLAN: 65 Y M with a PMH of CAD s/p 3 stents( most recent 03/2019) presented with a tear of R quad tendon, admitted for a repair with Dr. Vallejo. #R quadriceps tear - s/p Open right quadriceps tendon repair with Dr. 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 - New Patient This patient is new to me today: No - Critical Care Critical Care patient: No - Discharge Referral Referred to [facility] Med P.C.: No ATTENDING PHYSICIAN STATEMENT I saw and evaluated the patient. I reviewed the resident's note and discussed the case with the resident. I agree with the resident's findings and plan as documented. SUBJECTIVE: OBJECTIVE: ASSESSMENT AND PLAN:
--- NOTE | 2020-05-03 17:29 | PN ---
Teaching Attending Note Name of Resident: Rafiq Gar ATTENDING PHYSICIAN STATEMENT I saw and evaluated the patient. I reviewed the resident's note and discussed the case with the resident. I agree with the resident's findings and plan as documented. SUBJECTIVE: pain in RLE. No fever or chills. OBJECTIVE: OBJECTIVE: NAD, awake, alert, cooperative CV: RRR, no mRG Lungs: CTAB Abd: soft, NT, ND , NL BS. LE: RLE in a immobilizer with 2 drains with serosanguinous fluids. R toes with nl sensation, can wiggle and DP 2+ . ASSESSMENT AND PLAN: Unfortunate 65 y/o man with h/o CAD, s/p stents a year ago, HTN, HLP, who presented for R quadriceps tendon repair after a traumatic tear 1- S/p traumatic tear of R quadriceps tendon 2- S/p open repair of the Quadriceps tendon 3- h/o CAD 4- h/o HTN 5- h/o HLP Plan: - dc IV morphine - cont Oxy - No WB RLE - bowel regimen - cont ASA BId x 6 weeks , then once daily - spoke to dr. Vallejo, who discussed with David's control systems eng about no need for plavix . - cont bystolic - cont statin - APRIL management per ortho Dispo; patient is in process of talking ot his insurance company, if they don't cover SNF, then he choses to go home. dc depends on when the drains are removed
[2020-05-03] MEDS: ATORVASTATIN CA 80 MG TABLET (FP) PO SCH (21:34)
[2020-05-04] MEDS: oxyCODONE HCL 5 MG TABLET PO PRN ×5 (00:07→19:59)
[2020-05-04 08:19] LABS: BASO % 0.5 % (0-2.0); EOS % 4.4 % (0-4.5); HEMATOCRIT 32.6 % (35.4-49); HEMOGLOBIN 11.1 GM/dL (11.7-16.9); LYMPH % 17.6 % (8-40); MCH 30.3 pg (25.7-33.7); MCHC 34.1 g/dl (32.0-35.9); MEAN CELL VOLUME 89.1 fl (80-96); MEAN PLT VOLUME 8.9 fl (7.5-11.1); MONO % 10.3 % (3.8-10.2); NEUT % 67.2 % (42.8-82.8); PLATELET COUNT 332 K/MM3 (134-434); RBC 3.66 M/mm3 (4.00-5.60); RDW 14.9 % (11.9-15.9); WHITE BLOOD COUNT 12.4 K/mm3 (4.0-10.0)
[2020-05-04 08:42] LABS: BILIRUBIN,TOTAL 1.6 mg/dL (0.2-1); BLOOD UREA NITROGEN 23.6 mg/dL (7-18); CALCIUM 8.5 mg/dL (8.5-10.1); CREATININE 0.7 mg/dL (0.55-1.3); MAGNESIUM 2.1 mg/dL (1.8-2.4); PHOSPHOROUS 3.4 mg/dL (2.5-4.9)
--- NOTE | 2020-05-04 09:45 | PN ---
Teaching Attending Note Name of Resident: Rafiq Gar ATTENDING PHYSICIAN STATEMENT I saw and evaluated the patient. I reviewed the resident's note and discussed the case with the resident. I agree with the resident's findings and plan as documented. SUBJECTIVE: Patient is sitting on the chair waiting for the possible removal of the drainage OBJECTIVE: Vital Signs Temperature 98.8 F 05/04/20 06:00 Pulse Rate 78 05/04/20 06:00 Respiratory Rate 18 05/04/20 06:00 Blood Pressure 103/65 05/04/20 06:00 O2 Sat by Pulse Oximetry (%) 98 05/04/20 06:00 PE:per resident's note CBCD WBC 12.4 K/mm3 (4.0-10.0) H 05/04/20 07:16 RBC 3.66 M/mm3 (4.00-5.60) L 05/04/20 07:16 Hgb 11.1 GM/dL (11.7-16.9) L 05/04/20 07:16 Hct 32.6 % (35.4-49) L 05/04/20 07:16 MCV 89.1 fl (80-96) 05/04/20 07:16 MCHC 34.1 g/dl (32.0-35.9) 05/04/20 07:16 RDW 14.9 % (11.9-15.9) 05/04/20 07:16 Plt Count 332 K/MM3 (134-434) 05/04/20 07:16 MPV 8.9 fl (7.5-11.1) 05/04/20 07:16 CMP Sodium 137 mmol/L (136-145) 05/04/20 07:16 Potassium 4.0 mmol/L (3.5-5.1) 05/04/20 07:16 Chloride 104 mmol/L (98-107) 05/04/20 07:16 Carbon Dioxide 25 mmol/L (21-32) 05/04/20 07:16 Anion Gap 8 MMOL/L (8-16) 05/04/20 07:16 BUN 23.6 mg/dL (7-18) H 05/04/20 07:16 Creatinine 0.7 mg/dL (0.55-1.3) 05/04/20 07:16 Random Glucose 127 mg/dL (74-106) H 05/04/20 07:16 Calcium 8.5 mg/dL (8.5-10.1) 05/04/20 07:16 Total Bilirubin 1.6 mg/dL (0.2-1) H 05/04/20 07:16 AST 28 U/L (15-37) 05/04/20 07:16 ALT 16 U/L (13-61) 05/04/20 07:16 Alkaline Phosphatase 62 U/L (45-117) 05/04/20 07:16 Total Protein 6.0 g/dl (6.4-8.2) L 05/04/20 07:16 Albumin 3.0 g/dl (3.4-5.0) L 05/04/20 07:16 Current Medications Generic Name Dose Route Start Last Admin Trade Name Freq PRN Reason Stop Dose Admin Al Hydroxide/Mg Hydroxide 30 ml 05/01/20 07:38 05/01/20 23:38 Mylanta Oral Suspension - PO 30 ml Q4H PRN Administration DYSPEPSIA Aspirin 81 mg 05/01/20 10:00 05/03/20 21:34 Ecotrin - PO 81 mg BID SONALI Administration Atorvastatin Calcium 80 mg 05/01/20 22:00 05/03/20 21:34 Lipitor - PO 80 mg HS SONALI Administration Docusate Sodium 100 mg 05/03/20 10:00 05/03/20 09:03 Colace - PO 100 mg DAILY SONALI Administration Finasteride 5 mg 05/01/20 10:00 05/03/20 09:04 Proscar - PO 5 mg DAILY SONALI Administration Magnesium Hydroxide 30 ml 05/01/20 07:38 Milk Of Magnesia - PO PRN PRN CONSTIPATION Nebivolol 10 mg 05/01/20 10:00 05/03/20 09:03 Bystolic - PO 10 mg DAILY SONALI Administration Ondansetron HCl 4 mg 04/30/20 18:11 Zofran Injection IVPUSH Q6H PRN NAUSEA AND/OR VOMITING Ondansetron HCl 4 mg 05/01/20 07:38 Zofran Injection IVPUSH Q6H PRN NAUSEA Oxycodone HCl 5 mg 05/02/20 14:47 05/04/20 06:27 Roxicodone - PO 5 mg Q4H PRN Administration PAIN LEVEL 4 - 6 Pantoprazole Sodium 40 mg 05/01/20 10:00 05/03/20 09:03 Protonix - PO 40 mg DAILY SONALI Administration Senna/Docusate Sodium 2 tablet 05/01/20 10:00 05/03/20 21:35 Pericolace - PO 2 tablet BID SONALI Administration Home Medications Medication Instructions Recorded Aspirin 81 mg PO DAILY 04/30/20 Atorvastatin Ca [Lipitor] 80 mg PO HS 04/30/20 Clopidogrel Bisulfate [Plavix] 75 mg PO DAILY 04/30/20 Finasteride [Proscar -] 5 mg PO DAILY 04/30/20 Naproxen [Naprosyn -] 500 mg PO PRN 04/30/20 Nebivolol HCl [Bystolic] 10 mg PO DAILY 04/30/20 Microbiology 04/30/20 17:00 Leg - Right Upper Gram Stain - Final 04/30/20 17:00 Leg - Right Upper Wound Culture - Final NO GROWTH AFTER 48 HOURS INCUBATION ASSESSMENT AND PLAN: This patient is a 65yom with Pmhx of CAD, s/p stents a year ago, HTN, HLP, who presented for R quadriceps tendon repair after a traumatic tear # S/p traumatic tear of R quadriceps tendon s/p open repair of the Quadriceps tendon by Dr Vallejo , continue pain meds. colace # h/o CAD continue home meds # h/o HTN # h/o HLP DVT px: as per orthopedic to cont ECASA 81mg po BId x 6 weeks , then once daily SNF waiting insurance authorization .
[2020-05-04] MEDS: PANTOPRAZOLE 40 MG TABLET PO SCH (11:23)
[2020-05-04] MEDS: ASPIRIN COATED 81 MG TABLET.EC PO SCH ×2 (11:23→21:27)
[2020-05-04] MEDS: FINASTERIDE 5 MG TABLET (FP) PO SCH (11:23)
[2020-05-04] MEDS: SENNOSIDES/DOCUSATE COMBO (SENNA PLUS) TABLET (UD) PO SCH ×2 (11:24→21:27)
[2020-05-04] MEDS: NEBIVOLOL 10 MG TABLET (FP) PO SCH (11:24)
[2020-05-04] MEDS: DOCUSATE SODIUM 100 MG CAPSULE (FP) PO SCH (11:24)
--- NOTE | 2020-05-04 13:39 | PN ---
Progress Note (short form) - Note Progress Note: Surgery: Pt states that he has alonso oob and ambulated with PT assistance. Vital Signs Period Temp Pulse Resp BP Sys/Ch Pulse Ox Last 24 Hr 98.4 F-98.8 F 69-81 18-18 98-113/56-65 97-98 APRIL: oupt reviewed with Nursing staff, minimal today. 2 ml GEN: A&0x3, NAD Right knee: dressing removed today. [place] intact, clean and dry. No erythema or drainage noted. Both JPs removed with the tip intact.. Reapplied xeroform, dry gauze, and mary beth wrap, brace. CBC, BMP 05/04/20 07:16 10 07:16 A/p: 65 yo male s/p Right quadraceps tendon repair for tear, POD#4 Drains removed and new dressing applied Discharge instruction/care completed in the chart and explained to the patient D/w Dr. Vallejo
--- NOTE | 2020-05-04 16:36 | PN ---
Physical Exam: SUBJECTIVE: Patient seen and examined at bedside, no new complaints, no acute events overnight. OBJECTIVE: Vital Signs Period Temp Pulse Resp BP Sys/Ch Pulse Ox Last 24 Hr 98.3 F-98.8 F 69-86 16-18 99-113/61-66 97-99 GENERAL: Awake, alert, and fully oriented, in no acute distress. HEAD: Normal with no signs of trauma. EYES: Pupils equal, round and reactive to light, extraocular movements intact, sclera anicteric, EARS, NOSE, THROAT: Moist mucous membranes. LUNGS: Breath sounds equal, clear to auscultation bilaterally. No wheezes, and no crackles. No accessory muscle use. HEART: Regular rate and rhythm, normal S1 and S2 without murmur, rub or gallop. ABDOMEN: Soft, nontender, not distended, normoactive bowel sounds, no guarding, no rebound, no masses. No hepatomegaly or splenomegaly. LOWER EXTREMITIES: 2+ pulses, warm, well-perfused. No calf tenderness. No peripheral edema. Right leg: Knee immobilizer in place, intact dressing, 2 APRIL drains with serosanguinous fluids: motor and sensory function intact in RLE. SKIN: Warm, dry, normal turgor, no rashes or lesions noted, normal capillary refill. Laboratory Results - last 24 hr 05/04/20 05/04/20 07:16 07:16 WBC 12.4 H RBC 3.66 L Hgb 11.1 L Hct 32.6 L MCV 89.1 MCH 30.3 MCHC 34.1 RDW 14.9 Plt Count 332 MPV 8.9 Absolute Neuts (auto) 8.3 H Neutrophils % 67.2 Lymphocytes % 17.6 Monocytes % 10.3 H Eosinophils % 4.4 Basophils % 0.5 Nucleated RBC % 0 Sodium 137 Potassium 4.0 Chloride 104 Carbon Dioxide 25 Anion Gap 8 BUN 23.6 H Creatinine 0.7 Est GFR (CKD-EPI)AfAm 116.40 Est GFR (CKD-EPI)NonAf 100.43 Random Glucose 127 H Calcium 8.5 Phosphorus 3.4 Magnesium 2.1 Total Bilirubin 1.6 H AST 28 ALT 16 Alkaline Phosphatase 62 Total Protein 6.0 L Albumin 3.0 L Active Medications Generic Name Dose Route Start Last Admin Trade Name Freq PRN Reason Stop Dose Admin Al Hydroxide/Mg Hydroxide 30 ml 05/01/20 07:38 05/01/20 23:38 Mylanta Oral Suspension - PO 30 ml Q4H PRN Administration DYSPEPSIA Aspirin 81 mg 05/01/20 10:00 05/04/20 11:23 Ecotrin - PO 81 mg BID SONALI Administration Atorvastatin Calcium 80 mg 05/01/20 22:00 05/03/20 21:34 Lipitor - PO 80 mg HS SONALI Administration Docusate Sodium 100 mg 05/03/20 10:00 05/04/20 11:24 Colace - PO 100 mg DAILY SONALI Administration Finasteride 5 mg 05/01/20 10:00 05/04/20 11:23 Proscar - PO 5 mg DAILY SONALI Administration Magnesium Hydroxide 30 ml 05/01/20 07:38 Milk Of Magnesia - PO PRN PRN CONSTIPATION Nebivolol 10 mg 05/01/20 10:00 05/04/20 11:24 Bystolic - PO 10 mg DAILY SONALI Administration Ondansetron HCl 4 mg 04/30/20 18:11 Zofran Injection IVPUSH Q6H PRN NAUSEA AND/OR VOMITING Ondansetron HCl 4 mg 05/01/20 07:38 Zofran Injection IVPUSH Q6H PRN NAUSEA Oxycodone HCl 5 mg 05/02/20 14:47 05/04/20 15:50 Roxicodone - PO 5 mg Q4H PRN Administration PAIN LEVEL 4 - 6 Pantoprazole Sodium 40 mg 05/01/20 10:00 05/04/20 11:23 Protonix - PO 40 mg DAILY SONALI Administration Senna/Docusate Sodium 2 tablet 05/01/20 10:00 05/04/20 11:24 Pericolace - PO 2 tablet BID SONALI Administration ASSESSMENT/PLAN: 65 Y M with a PMH of CAD s/p 3 stents( most recent 03/2019) presented with a tear of R quad tendon, admitted for a repair with Dr. Vallejo. #R quadriceps tear - s/p Open right quadriceps tendon repair with Dr. 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 Pending insurance authorization for rehab facility-[facility] Visit type - Emergency Visit Emergency Visit: Yes ED Registration Date: 04/30/20 Care time: The patient presented to the Emergency Department on the above date and was hospitalized for further evaluation of their emergent condition. - New Patient This patient is new to me today: No - Critical Care Critical Care patient: No - Discharge Referral Referred to [facility] Med P.C.: No ATTENDING PHYSICIAN STATEMENT I saw and evaluated the patient. I reviewed the resident's note and discussed the case with the resident. I agree with the resident's findings and plan as documented. SUBJECTIVE: OBJECTIVE: ASSESSMENT AND PLAN:
[2020-05-04] MEDS: ATORVASTATIN CA 80 MG TABLET (FP) PO SCH (21:27)
[2020-05-05] MEDS: oxyCODONE HCL 5 MG TABLET PO PRN ×3 (01:58→14:49)
[2020-05-05 08:42] LABS: BASO % 0.6 % (0-2.0); EOS % 3.6 % (0-4.5); HEMOGLOBIN 12.2 GM/dL (11.7-16.9); LYMPH % 21.7 % (8-40); MCH 30.4 pg (25.7-33.7); MCHC 33.8 g/dl (32.0-35.9); MEAN CELL VOLUME 89.8 fl (80-96); MEAN PLT VOLUME 9.2 fl (7.5-11.1); NEUT % 61.1 % (42.8-82.8); PLATELET COUNT 444 K/MM3 (134-434); RDW 14.5 % (11.9-15.9); WHITE BLOOD COUNT 15.3 K/mm3 (4.0-10.0)
[2020-05-05 09:20] LABS: ALBUMIN 3.3 g/dl (3.4-5.0); BLOOD UREA NITROGEN 26.7 mg/dL (7-18); CALCIUM 9.3 mg/dL (8.5-10.1); MAGNESIUM 2.5 mg/dL (1.8-2.4); PHOSPHOROUS 4.6 mg/dL (2.5-4.9); POTASSIUM 3.9 mmol/L (3.5-5.1)
[2020-05-05 09:21] LABS: TOT PROT 6.9 g/dl (6.4-8.2)
[2020-05-05] MEDS: FINASTERIDE 5 MG TABLET (FP) PO SCH (09:22)
[2020-05-05] MEDS: PANTOPRAZOLE 40 MG TABLET PO SCH (09:22)
[2020-05-05] MEDS: DOCUSATE SODIUM 100 MG CAPSULE (FP) PO SCH (09:22)
[2020-05-05] MEDS: NEBIVOLOL 10 MG TABLET (FP) PO SCH (09:22)
[2020-05-05] MEDS: SENNOSIDES/DOCUSATE COMBO (SENNA PLUS) TABLET (UD) PO SCH ×2 (09:23→21:32)
[2020-05-05] MEDS: ASPIRIN COATED 81 MG TABLET.EC PO SCH ×2 (09:23→21:32)
--- NOTE | 2020-05-05 14:20 | PN ---
Physical Exam: SUBJECTIVE: Patient seen and examined at bedside, no acute events overnight, No new complaints. Pending SNF placement. OBJECTIVE: Vital Signs Period Temp Pulse Resp BP Sys/Ch Pulse Ox Last 24 Hr 98.6 F-99.3 F 73-88 17-19 113-131/70-80 94-97 GENERAL: Awake, alert, and fully oriented, in no acute distress. HEAD: Normal with no signs of trauma. EYES: Pupils equal, round and reactive to light, extraocular movements intact, sclera anicteric, EARS, NOSE, THROAT: Moist mucous membranes. LUNGS: Breath sounds equal, clear to auscultation bilaterally. No wheezes, and no crackles. No accessory muscle use. HEART: Regular rate and rhythm, normal S1 and S2 without murmur, rub or gallop. ABDOMEN: Soft, nontender, not distended, normoactive bowel sounds, no guarding, no rebound, no masses. No hepatomegaly or splenomegaly. LOWER EXTREMITIES: 2+ pulses, warm, well-perfused. No calf tenderness. No peripheral edema. Right leg: Knee immobilizer in place, intact dressing. motor and sensory function intact in RLE. SKIN: Warm, dry, normal turgor, no rashes or lesions noted, normal capillary refill. Laboratory Results - last 24 hr 05/05/20 05/05/20 07:40 07:40 WBC 15.3 H RBC 4.00 Hgb 12.2 Hct 36.0 MCV 89.8 MCH 30.4 MCHC 33.8 RDW 14.5 Plt Count 444 H D MPV 9.2 Absolute Neuts (auto) 9.3 H Neutrophils % 61.1 Lymphocytes % 21.7 D Monocytes % 13.0 H Eosinophils % 3.6 Basophils % 0.6 Nucleated RBC % 0 Sodium 131 L Potassium 3.9 Chloride 96 L Carbon Dioxide 23 Anion Gap 12 BUN 26.7 H Creatinine 1.0 Est GFR (CKD-EPI)AfAm 92.42 Est GFR (CKD-EPI)NonAf 79.75 Random Glucose 147 H Calcium 9.3 Phosphorus 4.6 Magnesium 2.5 H Total Bilirubin 2.0 H AST 32 ALT 19 Alkaline Phosphatase 76 Total Protein 6.9 Albumin 3.3 L Active Medications Generic Name Dose Route Start Last Admin Trade Name Freq PRN Reason Stop Dose Admin Al Hydroxide/Mg Hydroxide 30 ml 05/01/20 07:38 05/01/20 23:38 Mylanta Oral Suspension - PO 30 ml Q4H PRN Administration DYSPEPSIA Aspirin 81 mg 05/01/20 10:00 05/05/20 09:23 Ecotrin - PO 81 mg BID SONALI Administration Atorvastatin Calcium 80 mg 05/01/20 22:00 05/04/20 21:27 Lipitor - PO 80 mg HS SONALI Administration Docusate Sodium 100 mg 05/03/20 10:00 05/05/20 09:22 Colace - PO 100 mg DAILY SONALI Administration Finasteride 5 mg 05/01/20 10:00 05/05/20 09:22 Proscar - PO 5 mg DAILY SONALI Administration Magnesium Hydroxide 30 ml 05/01/20 07:38 Milk Of Magnesia - PO PRN PRN CONSTIPATION Nebivolol 10 mg 05/01/20 10:00 05/05/20 09:22 Bystolic - PO 10 mg DAILY SONALI Administration Ondansetron HCl 4 mg 04/30/20 18:11 Zofran Injection IVPUSH Q6H PRN NAUSEA AND/OR VOMITING Ondansetron HCl 4 mg 05/01/20 07:38 Zofran Injection IVPUSH Q6H PRN NAUSEA Oxycodone HCl 5 mg 05/02/20 14:47 05/05/20 08:22 Roxicodone - PO 5 mg Q4H PRN Administration PAIN LEVEL 4 - 6 Pantoprazole Sodium 40 mg 05/01/20 10:00 05/05/20 09:22 Protonix - PO 40 mg DAILY SONALI Administration Senna/Docusate Sodium 2 tablet 05/01/20 10:00 05/05/20 09:23 Pericolace - PO 2 tablet BID SONALI Administration ASSESSMENT/PLAN: 65 Y M with a PMH of CAD s/p 3 stents( most recent 03/2019) presented with a tear of R quad tendon, admitted for a repair with Dr. Vallejo. #R quadriceps tear - s/p Open right quadriceps tendon repair with Dr. 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 Pending [facility]hab Pl[facility] to [facility] type - Emergency Visit Emergency Visit: Yes ED Registration Date: 04/30/20 Care time: The patient presented to the Emergency Department on the above date and was hospitalized for further evaluation of their emergent condition. - New Patient This patient is new to me today: No - Critical Care Critical Care patient: No - Discharge Referral Referred to [facility] Med P.C.: No ATTENDING PHYSICIAN STATEMENT I saw and evaluated the patient. I reviewed the resident's note and discussed the case with the resident. I agree with the resident's findings and plan as documented. SUBJECTIVE: OBJECTIVE: ASSESSMENT AND PLAN:
--- NOTE | 2020-05-05 18:44 | PN ---
Teaching Attending Note Name of Resident: Rafiq Gar ATTENDING PHYSICIAN STATEMENT I saw and evaluated the patient. I reviewed the resident's note and discussed the case with the resident. I agree with the resident's findings and plan as documented. SUBJECTIVE: Francisco was removed today , comfortbale with NAD. OBJECTIVE: Vital Signs Temperature 98.1 F 05/05/20 17:19 Pulse Rate 74 05/05/20 17:19 Respiratory Rate 18 05/05/20 17:19 Blood Pressure 112/64 05/05/20 17:19 O2 Sat by Pulse Oximetry (%) 94 L 05/05/20 17:19 PE;per resident's note RLE in a mobilizer CBCD WBC 15.3 K/mm3 (4.0-10.0) H 05/05/20 07:40 RBC 4.00 M/mm3 (4.00-5.60) 05/05/20 07:40 Hgb 12.2 GM/dL (11.7-16.9) 05/05/20 07:40 Hct 36.0 % (35.4-49) 05/05/20 07:40 MCV 89.8 fl (80-96) 05/05/20 07:40 MCHC 33.8 g/dl (32.0-35.9) 05/05/20 07:40 RDW 14.5 % (11.9-15.9) 05/05/20 07:40 Plt Count 444 K/MM3 (134-434) H D 05/05/20 07:40 MPV 9.2 fl (7.5-11.1) 05/05/20 07:40 CMP Sodium 131 mmol/L (136-145) L 05/05/20 07:40 Potassium 3.9 mmol/L (3.5-5.1) 05/05/20 07:40 Chloride 96 mmol/L (98-107) L 05/05/20 07:40 Carbon Dioxide 23 mmol/L (21-32) 05/05/20 07:40 Anion Gap 12 MMOL/L (8-16) 05/05/20 07:40 BUN 26.7 mg/dL (7-18) H 05/05/20 07:40 Creatinine 1.0 mg/dL (0.55-1.3) 05/05/20 07:40 Random Glucose 147 mg/dL (74-106) H 05/05/20 07:40 Calcium 9.3 mg/dL (8.5-10.1) 05/05/20 07:40 Total Bilirubin 2.0 mg/dL (0.2-1) H 05/05/20 07:40 AST 32 U/L (15-37) 05/05/20 07:40 ALT 19 U/L (13-61) 05/05/20 07:40 Alkaline Phosphatase 76 U/L (45-117) 05/05/20 07:40 Total Protein 6.9 g/dl (6.4-8.2) 05/05/20 07:40 Albumin 3.3 g/dl (3.4-5.0) L 05/05/20 07:40 Current Medications Generic Name Dose Route Start Last Admin Trade Name Freq PRN Reason Stop Dose Admin Al Hydroxide/Mg Hydroxide 30 ml 05/01/20 07:38 05/01/20 23:38 Mylanta Oral Suspension - PO 30 ml Q4H PRN Administration DYSPEPSIA Aspirin 81 mg 05/01/20 10:00 05/05/20 09:23 Ecotrin - PO 81 mg BID SONALI Administration Atorvastatin Calcium 80 mg 05/01/20 22:00 05/04/20 21:27 Lipitor - PO 80 mg HS SONALI Administration Docusate Sodium 100 mg 05/03/20 10:00 05/05/20 09:22 Colace - PO 100 mg DAILY SONALI Administration Finasteride 5 mg 05/01/20 10:00 05/05/20 09:22 Proscar - PO 5 mg DAILY SONALI Administration Magnesium Hydroxide 30 ml 05/01/20 07:38 Milk Of Magnesia - PO PRN PRN CONSTIPATION Nebivolol 10 mg 05/01/20 10:00 05/05/20 09:22 Bystolic - PO 10 mg DAILY SONALI Administration Ondansetron HCl 4 mg 04/30/20 18:11 Zofran Injection IVPUSH Q6H PRN NAUSEA AND/OR VOMITING Ondansetron HCl 4 mg 05/01/20 07:38 Zofran Injection IVPUSH Q6H PRN NAUSEA Pantoprazole Sodium 40 mg 05/01/20 10:00 05/05/20 09:22 Protonix - PO 40 mg DAILY SONALI Administration Senna/Docusate Sodium 2 tablet 05/01/20 10:00 05/05/20 09:23 Pericolace - PO 2 tablet BID SONALI Administration Home Medications Medication Instructions Recorded Aspirin 81 mg PO DAILY 04/30/20 Atorvastatin Ca [Lipitor] 80 mg PO HS 04/30/20 Finasteride [Proscar -] 5 mg PO DAILY 04/30/20 Naproxen [Naprosyn -] 500 mg PO PRN 04/30/20 Nebivolol HCl [Bystolic] 10 mg PO DAILY 04/30/20 ASSESSMENT AND PLAN: This patient is a 65yom with Pmhx of CAD, s/p stents a year ago, HTN, HLP, who presented for R quadriceps tendon repair after a traumatic tear # S/p traumatic tear of R quadriceps tendon s/p open repair of the Quadriceps tendon by Dr Vallejo , continue pain meds. colace , s/p removal of drain # h/o CAD continue home meds # h/o HTN # h/o HLP DVT px: as per orthopedic to cont ECASA 81mg po BId x 6 weeks , then once daily SNF waiting insurance authorization .
[2020-05-05] MEDS: ATORVASTATIN CA 80 MG TABLET (FP) PO SCH (21:32)
--- NOTE | 2020-05-06 03:30 | PN ---
Progress Note (short form) - Note Progress Note: 65M s/p open repair quadriceps tendon POD #3. Pain well controlled. No acute events overnight. Pt. denies overnight history of headaches, chest pain, shortness of breath, nausea, vomiting, chills, & sweats. (+) Voiding; (+) Flatus; (-) BM. Tolerating diet. (+) Walked in hallway. All labs and vitals reviewed. PE: AAO x 3, NAD. R-Knee: Dressing C/D/I. Drains intact & in place. NVI distally. A/P: 65M s/p open repair quadriceps tendon POD #3. -Pain control. -DVT PPx: -Chemical: ASA 81mg PO BID x 6 weeks. -Mechanical: MARVIN's, SCD's. -f/u 2 x drain outputs; if drainage <30cc/shift tomorrow, drains will be removed. -Incentive spirometry q15 min. -PT/OT/Rehab, OOB. -WBAT RLE. -Knee immobilizer on at all times; strictly NO range of motion right knee. -f/u AM labs. -Diet as tolerated. -Care per medical hospitalist team. -Discharge planning: patient will likely require discharge to inpatient rehabilitation facility; recommend [facility]; f/lou[facility] 7- 10 days after discharge; call for appointment . -Will follow. Addy Vallejo MD (Orthopaedic Surgery).
[2020-05-06] MEDS ORDERED: oxyCODONE HCL 5 MG TABLET PO ONE (03:31)
[2020-05-06 07:26] LABS: BASO % 0.7 % (0-2.0); EOS % 3.9 % (0-4.5); HEMATOCRIT 32.2 % (35.4-49); HEMOGLOBIN 10.8 GM/dL (11.7-16.9); LYMPH % 17.5 % (8-40); MCHC 33.6 g/dl (32.0-35.9); MEAN CELL VOLUME 89.3 fl (80-96); MEAN PLT VOLUME 8.7 fl (7.5-11.1); MONO % 11.5 % (3.8-10.2); NEUT % 66.4 % (42.8-82.8); PLATELET COUNT 345 K/MM3 (134-434); RBC 3.61 M/mm3 (4.00-5.60); RDW 14.4 % (11.9-15.9); WHITE BLOOD COUNT 11.3 K/mm3 (4.0-10.0)
[2020-05-06 08:04] LABS: ALBUMIN 2.8 g/dl (3.4-5.0); BILIRUBIN,TOTAL 1.6 mg/dL (0.2-1); BLOOD UREA NITROGEN 27.6 mg/dL (7-18); CALCIUM 8.6 mg/dL (8.5-10.1); CREATININE 0.7 mg/dL (0.55-1.3); PHOSPHOROUS 3.5 mg/dL (2.5-4.9); POTASSIUM 4.6 mmol/L (3.5-5.1); TOT PROT 5.9 g/dl (6.4-8.2)
[2020-05-06] MEDS: DOCUSATE SODIUM 100 MG CAPSULE (FP) PO SCH (09:01)
[2020-05-06] MEDS: FINASTERIDE 5 MG TABLET (FP) PO SCH (09:01)
[2020-05-06] MEDS: SENNOSIDES/DOCUSATE COMBO (SENNA PLUS) TABLET (UD) PO SCH (09:01)
[2020-05-06] MEDS: PANTOPRAZOLE 40 MG TABLET PO SCH (09:01)
[2020-05-06] MEDS: NEBIVOLOL 10 MG TABLET (FP) PO SCH (09:01)
[2020-05-06] MEDS: ASPIRIN COATED 81 MG TABLET.EC PO SCH (09:01)
[2020-05-06] MEDS ORDERED: oxyCODONE HCL 5 MG TABLET PO PRN (09:33)
--- NOTE | 2020-05-06 14:31 | DS ---
Physical Exam: SUBJECTIVE: Patient seen and examined at bedside, no acute events overnight, No new complaints. Accepted into [facility] OBJECTIVE: Vital Signs Period Temp Pulse Resp BP Sys/Ch Pulse Ox Last 24 Hr 98.1 F-98.3 F 63-81 18-18 96-113/51-71 94-97 PHYSICAL EXAM GENERAL: Awake, alert, and fully oriented, in no acute distress. HEAD: Normal with no signs of trauma. EYES: Pupils equal, round and reactive to light, extraocular movements intact, sclera anicteric, EARS, NOSE, THROAT: Moist mucous membranes. LUNGS: Breath sounds equal, clear to auscultation bilaterally. No wheezes, and no crackles. No accessory muscle use. HEART: Regular rate and rhythm, normal S1 and S2 without murmur, rub or gallop. ABDOMEN: Soft, nontender, not distended, normoactive bowel sounds, no guarding, no rebound, no masses. No hepatomegaly or splenomegaly. LOWER EXTREMITIES: 2+ pulses, warm, well-perfused. No calf tenderness. No peripheral edema. Right leg: Knee immobilizer in place, intact dressing. motor and sensory function intact in RLE. SKIN: Warm, dry, normal turgor, no rashes or lesions noted, normal capillary refill. LABS Laboratory Results - last 24 hr 05/05/20 05/06/20 05/06/20 12:40 06:58 06:58 WBC 11.3 H RBC 3.61 L Hgb 10.8 L Hct 32.2 L MCV 89.3 MCH 30.0 MCHC 33.6 RDW 14.4 Plt Count 345 D MPV 8.7 Absolute Neuts (auto) 7.5 Neutrophils % 66.4 Lymphocytes % 17.5 Monocytes % 11.5 H Eosinophils % 3.9 Basophils % 0.7 Nucleated RBC % 0 Sodium 134 L Potassium 4.6 Chloride 101 Carbon Dioxide 27 Anion Gap 6 L BUN 27.6 H Creatinine 0.7 Est GFR (CKD-EPI)AfAm 116.40 Est GFR (CKD-EPI)NonAf 100.43 Random Glucose 109 H Calcium 8.6 Phosphorus 3.5 Magnesium 2.0 Total Bilirubin 1.6 H AST 32 ALT 20 Alkaline Phosphatase 61 Total Protein 5.9 L Albumin 2.8 L COVID-19 (MAXIME) Not detected HOSPITAL COURSE: Date of Admission:04/30/20 65 Y M with a PMH of CAD s/p 3 stents( most recent 03/2019) presented with a tear of R quad tendon, admitted for a repair with Dr. Vallejo. s/p Open right quadriceps tendon repair with Dr. Shepherd, POD#6. Knee immobilizer in place. Patient remained afibrile and hemodynamically stable. Recieved inpatient PT therapy and will be discharged to [facility] for Continued care and PT. 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 D/c'd Plavix and advised to continue home meds Bystolic 10 mg QD, Lipitor 80mg HS, ASA 81 mg (ASA BId x 6 weeks , then once daily) Patient is medically and surgically stable for discharge and discharged to [facility] with the following instructions, prescriptions, and referrals. Date of Discharge: 05/06/20 Minutes to complete discharge: 36 Discharge Summary Problems reviewed: Yes Reason For Visit: INJURY OF QUADRICEPS TENDON Condition: Good - Instructions Diet, Activity, Other Instructions: YOUR VISIT You came to the hospital because you had leg pain. It was found that you experienced a muscle tendon tear after a fall. You were admitted to the hospital for a surgical repair of the tear with Dr. Shepherd. You are now stable and may be discharged to a rehab facility for further care. MEDICATIONS Please continue to take your home medications as prescribed. You have *NEW* medication. - Please take Aspirin 81 mg two times a day for a total of 8 weeks as per orthopedic recommendations Dr Vallejo , to help prevent blood clots. Then continue to take one daily. Your are on the 6th Day of Aspirin today 05/06/20. - DO NOT Take Plavix 75mg ADDITIONAL CARE Please make an appointment to see your primary care provider within 1 week from today or after completion of rehab to discuss labs and repeat blood work. Please make an appointment to see your internet marketing coordinator within 1 week from today or after completion of rehab for continue care of your heart. Your anticoagulation medication Plavix was discontinued. Please make an appointment to see your surgeon, Dr. Vallejo, in his [place] Office within 7-10 days after discharge; call for appointment ADDITIONAL INFORMATION Please call 911 or come directly to the emergency department if you experience recurrence of the symptoms that brought you to the hospital, unusual headache, vision change, shortness of breath, chest pain, numbness, tingling, loss of alertness/awareness, loss of function, unusual bleeding or any alarming symptoms. Dr. Vallejo Discharge Instructions Post Operative Instructions Physical activity Full weight bearing. No range of motion at the knee, wear brace at all times. Wound care Keep your incision clean, dry and covered at all times. Change dressing every 3 days or as needed to maintain dressing at all times. Apply xeroform, dry gauze and mary beth wrap from toe to above the knee. Reapply to brace. Diet There are no dietary restrictions. Eat healthy, high-fiber foods. Drink 6 to 8 glasses of liquid each day. This will assist in keeping your bowels are regular. Pain management Any pain prescription medication ordered should be taken as prescribed for moderate to severe pain. Do not take additional Tylenol while taking Percocet. Take Aspirin 81 mg two times a day for a total of 8 weeks to prevent blood clots. Then one daily. Call Dr. Vallejo for any of the following: Severe pain not relieved by medication Fever of 101 or higher Excessive bleeding or drainage on dressing Inability to urinate If you experience chest pain or shortness of breath, please seek emergency care immediately. Please call the office at to confirm your post-op appointment for the week following surgery. Referrals: ON STAFF,NOT [Primary Care Provider] - 1 Week (Hospital course, repeat blood works) Addy Vallejo MD [Staff Physician] - 1 Week (Hospital course, s/p Right quadraceps tendon repair) Disposition: [facility] - Home Medications Comprehensive Discharge Medication List: Ambulatory Orders Aspirin 81 mg PO DAILY 04/30/20 Atorvastatin Ca [Lipitor] 80 mg PO HS 04/30/20 Finasteride [Proscar -] 5 mg PO DAILY 04/30/20 Naproxen [Naprosyn -] 500 mg PO PRN 04/30/20 Nebivolol HCl [Bystolic] 10 mg PO DAILY 04/30/20 This patient is new to me today: No Emergency Visit: Yes ED Registration Date: 04/30/20 Care time: The patient presented to the Emergency Department on the above date and was hospitalized for further evaluation of their emergent condition. Critical Care patient: No - Discharge Referral Referred to [facility] Med [facility] No ATTENDING PHYSICIAN STATEMENT I saw and evaluated the patient. I reviewed the resident's note and discussed the case with the resident. I agree with the resident's findings and plan as documented. SUBJECTIVE: OBJECTIVE: ASSESSMENT AND PLAN:
[2020-05-06 14:35] VITALS: BP 107/59; PULSE 79; TEMP 97.5
--- NOTE | 2020-05-06 18:43 | PN ---
Teaching Attending Note Name of Resident: Rafiq Gar ATTENDING PHYSICIAN STATEMENT I saw and evaluated the patient. I reviewed the resident's note and discussed the case with the resident. I agree with the resident's findings and plan as documented. SUBJECTIVE: Comfortable with nAD. no fever or chills. OBJECTIVE: Vital Signs Temperature 97.5 F L 05/06/20 14:34 Pulse Rate 79 05/06/20 14:34 Respiratory Rate 18 05/06/20 14:34 Blood Pressure 107/59 L 05/06/20 14:34 O2 Sat by Pulse Oximetry (%) 94 L 05/06/20 10:00 PE:per resident's note CBCD WBC 11.3 K/mm3 (4.0-10.0) H 05/06/20 06:58 RBC 3.61 M/mm3 (4.00-5.60) L 05/06/20 06:58 Hgb 10.8 GM/dL (11.7-16.9) L 05/06/20 06:58 Hct 32.2 % (35.4-49) L 05/06/20 06:58 MCV 89.3 fl (80-96) 05/06/20 06:58 MCHC 33.6 g/dl (32.0-35.9) 05/06/20 06:58 RDW 14.4 % (11.9-15.9) 05/06/20 06:58 Plt Count 345 K/MM3 (134-434) D 05/06/20 06:58 MPV 8.7 fl (7.5-11.1) 05/06/20 06:58 CMP Sodium 134 mmol/L (136-145) L 05/06/20 06:58 Potassium 4.6 mmol/L (3.5-5.1) 05/06/20 06:58 Chloride 101 mmol/L (98-107) 05/06/20 06:58 Carbon Dioxide 27 mmol/L (21-32) 05/06/20 06:58 Anion Gap 6 MMOL/L (8-16) L 05/06/20 06:58 BUN 27.6 mg/dL (7-18) H 05/06/20 06:58 Creatinine 0.7 mg/dL (0.55-1.3) 05/06/20 06:58 Random Glucose 109 mg/dL (74-106) H 05/06/20 06:58 Calcium 8.6 mg/dL (8.5-10.1) 05/06/20 06:58 Total Bilirubin 1.6 mg/dL (0.2-1) H 05/06/20 06:58 AST 32 U/L (15-37) 05/06/20 06:58 ALT 20 U/L (13-61) 05/06/20 06:58 Alkaline Phosphatase 61 U/L (45-117) 05/06/20 06:58 Total Protein 5.9 g/dl (6.4-8.2) L 05/06/20 06:58 Albumin 2.8 g/dl (3.4-5.0) L 05/06/20 06:58 Home Medications Medication Instructions Recorded Aspirin 81 mg PO DAILY 04/30/20 Atorvastatin Ca [Lipitor] 80 mg PO HS 04/30/20 Finasteride [Proscar -] 5 mg PO DAILY 04/30/20 Naproxen [Naprosyn -] 500 mg PO PRN 04/30/20 Nebivolol HCl [Bystolic] 10 mg PO DAILY 04/30/20 ASSESSMENT AND PLAN: This patient is a 65yom with Pmhx of CAD, s/p stents a year ago, HTN, HLP, who presented for R quadriceps tendon repair after a traumatic tear # S/p traumatic tear of R quadriceps tendon s/p open repair of the Quadriceps tendon by Dr Vallejo , continue pain meds. colace , s/p removal of drain dc patient to rehab # h/o CAD continue home meds # h/o HTN # h/o HLP DVT px: as per orthopedic to cont ECASA 81mg po BId x 6 weeks , then once daily [atient is going to [facility] rehab
== END 2020-05-06 16:46 | DRG 502 ==
LOC: JER 07:47 → JERBED 10:27 → J6S 14:23
PROVIDERS: ADMIT Internal Medicine; ATTEND Internal Medicine
PROC: 0LBL0ZZ Excision of Right Upper Leg Tendon, Open Approach (ICD-10-PCS; 2020-04-30)
PROC: 0LQN0ZZ Repair Right Lower Leg Tendon, Open Approach (ICD-10-PCS; principal; 2020-04-30 15:00)
DX: S76.111A Strain of right quadriceps muscle, fascia and tendon, initial encounter (principal); S86.891A Other injury of other muscle(s) and tendon(s) at lower leg level, right leg, initial encounter; X58.XXXA Exposure to other specified factors, initial encounter; Y93.89 Activity, other specified; Y92.89 Other specified places as the place of occurrence of the external cause; Y99.9 Unspecified external cause status; I10 Essential (primary) hypertension; I25.10 Atherosclerotic heart disease of native coronary artery without angina pectoris; Z95.5 Presence of coronary angioplasty implant and graft
CPT/HCPCS: 36415; 71045-TC-FY; 80048; 80053; 83735; 84100; 85025; 85610; 86850; 86900; 86901; 87070; 87205; 93005; 93010; 94010; 94760; 97116-GP; 97162-GP; 99285-25; C9803; U0003